=== PATIENT | male | born 1970 | race Two or more races ===

== ENCOUNTER 2023-12-27 22:52 | Observation (INO) ==
[2023-12-28 01:39] LABS: Albumin Globulin Ratio 1.2 (0.9-2); Albumin Level 3.8 gm/dl (3.4-5.0); BUN Creatinine Ratio 19.2 (10-20); Bilirubin,Total 0.2 mg/dl (0.2-1.0); Calcium 8.5 mg/dl (8.6-10.3); Creatinine Clr Calc Pharmacy 117.9 ml/min; Est GFR (African American) 120.3 ml/min; Est GFR (Non-African American) 103.8 ml/min; Globulin 3.3 gm/dl (2.5-4.0); Potassium 3.7 mmol/L (3.5-5.1); Total Protein 7.1 gm/dl (6.0-8.3)
[2023-12-28 01:59] LABS: INR 0.9 (0.9-1.1); Partial Thromboplastin Time 27 Seconds (21-31)
[2023-12-28 02:15] LABS: Hemoglobin 11.8 g/dl (14.0-18.0); Mean Corpuscular Hemoglobin 26.7 pg (25.0-34.0); Mean Corpuscular Hgb Conc 31.9 g/dL (32.0-36.0); Mean Corpuscular Volume 83.7 fL (80.0-100.0); Platelet Count 4 K/uL (130-400); RDW Coefficient of Variation 14.3 % (11.5-14.5); RDW Standard Deviation 43.6 fL (36.4-46.3); Red Blood Count 4.42 M/uL (4.70-6.10); White Blood Count 6.26 K/ul (4.8-10.8)
[2023-12-28 02:17] LABS: Basophils # (auto) 0.02 K/uL (0.00-0.20); Basophils % (auto) 0.3 %; Eosinophils # (auto) 0.15 K/uL (0.00-0.50); Eosinophils % (auto) 2.4 %; Immature Granulocytes # (auto) 0.03 K/uL (0.01-0.20); Immature Granulocytes % (auto) 0.5 %; Lymphocytes # (auto) 1.48 K/uL (1.20-3.40); Lymphocytes % (auto) 23.6 %; Monocytes # (auto) 0.36 K/uL (0.11-0.59); Monocytes % (auto) 5.8 %; Neutrophils # (auto) 4.22 K/uL (1.40-6.50); Neutrophils % (auto) 67.4 %; Platelet Estimate Signific. Decreased (Normal)
[2023-12-28 04:38] LABS: Appearance Urine Clear (Clear); Bilirubin Urine Negative (Negative); Blood Urine Negative (Negative); Color Urine Yellow; Glucose Urine UA Negative (Negative); Ketones Urine Negative (Negative); Leukocyte Esterase Urine Negative (Negative); Nitrite Urine Negative (Negative); Protein Urine Negative (Negative); Specific Gravity Urine 1.022 (1.000-1.030); Urobilinogen Urine Negative (Negative)
[2023-12-28] MEDS: PANTOprazole 40 MG in SYRINGE 0 ML IV ONE (04:50)
[2023-12-28 05:24] LABS: Adenovirus PCR Not Detected (NotDetected); Bordetella parapertussis PCR Not Detected (NotDetected); Bordetella pertussis PCR Not Detected (NotDetected); Chlamydia pneumoniae PCR Not Detected (NotDetected); Coronavirus 229E PCR Not Detected (NotDetected); Coronavirus CoV-2 (COVID19)PCR Not Detected (NotDetected); Coronavirus HKU1 PCR Not Detected (NotDetected); Coronavirus NL63 PCR Not Detected (NotDetected); Coronavirus OC43PCR Not Detected (NotDetected); Human Metapneumovirus PCR Not Detected (NotDetected); Influenza A PCR Not Detected (NotDetected); Influenza B PCR Not Detected (NotDetected); Mycoplasma pneumoniae PCR Not Detected (NotDetected); Parainfluenza Virus 1 PCR Not Detected (NotDetected); Parainfluenza Virus 2 PCR Not Detected (NotDetected); Parainfluenza Virus 3 PCR Not Detected (NotDetected); Parainfluenza Virus 4 PCR Not Detected (NotDetected); Respiratory Syncytial VirusPCR Not Detected (NotDetected); Rhinovirus/Enterovirus PCR Not Detected (NotDetected)
--- NOTE | 2023-12-28 05:29 | CT Scan Report ---
Exam(s): CT ABDOMEN + PELVIS Without Contrast EXAM: CT Abdomen and Pelvis Without Intravenous Contrast CLINICAL HISTORY: Reason for exam: gi bleed, low plt.pt from [facility], staff reports low platelets, bruising and bloody stool. pt c/o abd pain, shortness of breath and nausea. denies hx of low platelet count in the past. TECHNIQUE: Axial computed tomography images of the abdomen and pelvis without intravenous contrast. CTDI is 22 mGy and DLP is 1115 mGy-cm. Automated exposure control was utilized for the study. A dose lowering technique was utilized adhering to the principles of ALARA. COMPARISON: No relevant prior studies available. FINDINGS: ABDOMEN: Liver: Unremarkable. Gallbladder and bile ducts: Unremarkable. No calcified stones. No ductal dilation. Pancreas: Unremarkable. No ductal dilation. Spleen: Unremarkable. No splenomegaly. Adrenals: Unremarkable. No mass. Kidneys and ureters: Mild asymmetric left perinephric edema. No obstructing stones. No hydronephrosis. Stomach and bowel: Generalized increase in stool throughout much of the colon. No obstruction. No mucosal thickening. PELVIS: Appendix: No findings to suggest acute appendicitis. Bladder: Mild bladder wall thickening, though the bladder is not well distended. No stones. ABDOMEN and PELVIS: Intraperitoneal space: Unremarkable. No free air. No significant fluid collection. Bones/joints: No acute findings. Soft tissues: Unremarkable. Vasculature: Unremarkable. No abdominal aortic aneurysm. Lymph nodes: Unremarkable. No enlarged lymph nodes. IMPRESSION: Mild bladder wall thickening, though the bladder is not well-distended. Correlate for possible cystitis. Mild asymmetric left perinephric infiltration. No hydronephrosis or urinary tract calculus. Electronically signed by: Maikel Roy MD 12/28/23 05:28 AM
[2023-12-28] MEDS ORDERED: methylPREDNISolone 10 mg/mL (For Ped Dose < 7mg) IV STA (06:10)
[2023-12-28] MEDS ORDERED: SODIUM CHLORIDE 0.9% 250 ML IV PRN (06:10)
[2023-12-28] MEDS ORDERED: IMMUNE GLOBULIN (HUMAN) SOLN IV ONE (06:12)
--- NOTE | 2023-12-28 06:15 | Emergency Department Note ---
Impression & Plan Thrombocytopenia ED Provider Note ED Provider Note NAME: TRISTA [id number] BRYNN AGE:53 SEX: Male : 1970 ARRIVES VIA: EMS INFORMANT: Patient ED PROVIDER(s): Margaret Flower DO CHIEF COMPLAINT: Abnormal outpatient lab HPI: This is a 53-year-old male [facility] to abnormal outpatient labs from 2 days ago. He states he was told he has low platelets. He states no prior history of low platelets. He states he does not take any blood thinners or antiplatelet medications. He states over the last several months they have been doing blood work on him to evaluate him for possible lupus. He states he was started on prednisone a couple weeks ago additionally. He states has been having intermittent abdominal pain and has occasionally noticed blood in his stool. He states he has had bruises and noticed that his gums would bleed with teeth brushing. He denies any blood in his urine, or blood in the sputum. PAST MEDICAL HISTORY:See Below PAST SURGICAL HISTORY:See Below FAMILY HISTORY:See Below SOCIAL HISTORY:See Below HOME MEDICATIONS:See Below ALLERGIES:See Below VITALS:See Below PHYSICAL EXAMINATION: GENERAL: alert, well appearing, well nourished, no distress, non-toxic EYE EXAM: normal conjunctiva, PERRL and EOM's grossly intact OROPHARYNX: no exudate, no erythema, lips, buccal mucosa, and tongue normal and mucous membranes are moist NECK: supple, no nuchal rigidity, no adenopathy, non-tender LUNGS: Clear to auscultation. Normal chest wall mechanics, no w/r/r HEART: no murmurs, S1 normal and S2 normal ABDOMEN: abdomen soft, non-tender, normo-active bowel sounds, no masses, no rebound or guarding. SKIN: no rashes, bruise noted to right chest wall, left upper extremity both appear to be healing UPPER EXTREMITIES: upper extremities are grossly normal. FROM, nml pulses b/l. LOWER EXTREMITIES: No pitting edema. FROM, nml pulses b/l. NEURO EXAM: Normal sensorium, cranial nerves II-XII grossly intact, normal speech, no facial droop,nogross weakness of arms, no gross weakness of legs. Gross sensation intact. No ataxia. Vital Signs: reviewed and remarkable Differential Diagnosis: Lab error, phlebotomy air, medication ADR, splenomegaly, acute viral reaction, acute malignancy, ITP, as well as others were considered MEDICAL DECISION MAKING: This is a 53-year-old male who presents from a local correctional facility due to concern for abnormal outpatient labs showing thrombocytopenia with a platelet count of 10. Labs drawn and sent here, IV established, and once a room was available patient was monitored on telemetry. Repeat platelet count here was 4. Chest x-ray performed and evaluated by me at bedside. Due to concern for abdominal pain and recent mention of GI bleed, patient sent for CT of the abdomen pelvis additionally. Additional labs sent by me as well as nasal swab for viral etiology. Patient denies any traumatic injury. He does not currently take any antiplatelet or anticoagulation medication. I did discuss case with the on-call charge nurse at the [facility] at the present who was able to confirm some recent events. Case then discussed with on-call heme-onc who made additional recommendations regarding treatment for likely ITP. These were added, case then discussed with hospitalist team for additional evaluation. Consultation(s): 0610: Discussed with Dr. Cruz, heme-onc. Recommends initiation of 1 g IV methylprednisolone daily, IVIG 1 g/kg/day and administering 1 unit of platelets. 0715: Discussed with Dr. Jay, [place] hospitalist team, for additional evaluation and mgmt. ER Treatment Provided: See below 0323: Discussed with Mei, charge nurse in the [facility]. She confirms patient was recently undergoing a workup for SLE and was started on prednisone on December 05 to be taken in a tapering fashion. She states he has not had any recent outpatient imaging in the last several months. She states he did have several nosebleeds at their facility in recent days. She states he was scheduled to be started on Plaquenil but had not yet started that yet. Diagnostics Interpreted By Me: -Cardiac Monitoring: An order was placed for continuous cardiac monitoring. The monitor shows a rate of 70 with normal sinus rhythm. -Laboratory studies: As stated above and show below. -Imaging studies: X-ray Chest: A single view study of the chest was reviewed and was negative for cardiomegaly, focal infiltrate, effusion, pulmonary edema, or wide mediastinum. Triage Nursing Note Reviewed Prior/Outside Records Reviewed -outpatient labs from the [facility] reviewed Critical Care: Critical care of 42 min performed to assess and manage high likelihood of life- threatening thrombocytopenia, involving labs and imaging performed with assessment to evaluate thrombocytopenia diagnosis with frequent reassessment. This time includes bedside time, treatment discussions with patient/family/consultants, documentation time and excludes procedure time. Past Med/Surg History Social History Smoking Status: Never smoker Preferred Language: French Feels Safe at Home: Yes Results & Data (ED) Vital Signs Vital Signs - 24 hr 12/27/23 23:00 12/28/23 02:45 12/28/23 02:48 Temperature 36.4 C L Temperature Source Temporal Artery Scan Pulse Rate 91 H 73 Pulse Rate [Apical] 65 Pulse Rhythm [Apical] Regular Pulse Strength [Apical] Normal Respiratory Rate 18 18 Respiratory Effort / Characteristics Non-Labored Non-Labored Spontaneous Respiratory Depth Normal Normal Respiratory Pattern Regular Blood Pressure 155/81 H Blood Pressure [Right Arm] 125/91 Blood Pressure Mean 105 Blood Pressure Mean [Right Arm] 102 Blood Pressure Position [Right Arm] Lying Pulse Oximetry 97 95 Oxygen Delivery Method Room Air Room Air Sepsis Recent Fever Within 48 Hours No Sepsis New/Unexplained Change in Mental Status No Sepsis Action Taken by Nursing No Action Required 12/28/23 05:00 Temperature Temperature Source Pulse Rate Pulse Rate [Apical] 76 Pulse Rhythm [Apical] Regular Pulse Strength [Apical] Normal Respiratory Rate 18 Respiratory Effort / Characteristics Non-Labored Spontaneous Respiratory Depth Normal Respiratory Pattern Regular Blood Pressure Blood Pressure [Right Arm] 128/77 Blood Pressure Mean Blood Pressure Mean [Right Arm] 94 Blood Pressure Position [Right Arm] Lying Pulse Oximetry 98 Oxygen Delivery Method Room Air Sepsis Recent Fever Within 48 Hours Sepsis New/Unexplained Change in Mental Status Sepsis Action Taken by Nursing Laboratory Data 12/28/23 00:55 12/28/23 00:55 Lab Results 12/28/23 12/28/23 Range/Units 00:55 04:06 WBC 6.26 (4.8-10.8) K/ul RBC 4.42 L (4.70-6.10) M/uL Hgb 11.8 L (14.0-18.0) g/dl Hct 37.0 L (42.0-52.0) % MCV 83.7 (80.0-100.0) fL MCH 26.7 (25.0-34.0) pg MCHC 31.9 L (32.0-36.0) g/dL RDW Std Deviation 43.6 (36.4-46.3) fL RDW Coeff of Veto 14.3 (11.5-14.5) % Plt Count 4 L* (130-400) K/uL Immature Gran % (Auto) 0.5 % Neut % (Auto) 67.4 % Lymph % (Auto) 23.6 % [place] % (Auto) 5.8 % Eos % (Auto) 2.4 % Baso % (Auto) 0.3 % Neut # (Auto) 4.22 (1.40-6.50) K/uL Lymph # (Auto) 1.48 (1.20-3.40) K/uL [place] # (Auto) 0.36 (0.11-0.59) K/uL Eos # (Auto) 0.15 (0.00-0.50) K/uL Baso # (Auto) 0.02 (0.00-0.20) K/uL Immature Gran # (Auto) 0.03 (0.01-0.20) K/uL Platelet Estimate Signific. Decreased L (Normal) Peripher Smr Path Cons PT 10.0 (9.0-12.0) Seconds INR 0.9 (0.9-1.1) APTT 27 (21-31) Seconds PTT Ratio 1.0 Sodium 136 (136-145) mmol/L Potassium 3.7 (3.5-5.1) mmol/L Chloride 102 (98-107) mmol/L Carbon Dioxide 28 (21-32) mmol/L Anion Gap 6 (3-11) BUN 15 (6-23) mg/dl Creatinine 0.78 (0.6-1.4) mg/dl Est Cr Clr Drug Dosing 117.9 ml/min Est GFR ( Amer) 120.3 ml/min Est GFR (Non-Af Amer) 103.8 ml/min BUN/Creatinine Ratio 19.2 (10-20) Glucose 115 H (70-99(Fasting)) mg/dl Calcium 8.5 L (8.6-10.3) mg/dl Total Bilirubin 0.2 (0.2-1.0) mg/dl AST 15 (13-39) U/L ALT 13 (7-52) U/L Alkaline Phosphatase 59 (34-104) U/L Total Protein 7.1 (6.0-8.3) gm/dl Albumin 3.8 (3.4-5.0) gm/dl Globulin 3.3 (2.5-4.0) gm/dl Albumin/Globulin Ratio 1.2 (0.9-2) Urine Color Yellow Urine Appearance Clear (Clear) Urine pH 6.0 (4.5-7.5) Ur Specific [place] 1.022 (1.000-1.030) Urine Protein Negative (Negative) Urine Glucose (UA) Negative (Negative) Urine Ketones Negative (Negative) Urine Blood Negative (Negative) Urine Nitrite Negative (Negative) Urine Bilirubin Negative (Negative) Urine Urobilinogen Negative (Negative) Ur Leukocyte Esterase Negative (Negative) Adenovirus (PCR) Not Detected (NotDetected) Anaplasma Smear See Comment Babesia Smear See Comment B. pertussis DNA (PCR) Not Detected (NotDetected) B.parapertussis DNA PCR Not Detected (NotDetected) Lyme Disease Screen Negative (Negative) C. pneumoniae DNA (PCR) Not Detected (NotDetected) Coronavirus OC43 (PCR) Not Detected (NotDetected) Coronavirus HKU1 (PCR) Not Detected (NotDetected) Coronavirus 229E (PCR) Not Detected (NotDetected) SARS-CoV-2 (PCR) Not Detected (NotDetected) Coronavirus NL63 (PCR) Not Detected (NotDetected) Human Metapneumovir PCR Not Detected (NotDetected) Influenza Type A (PCR) Not Detected (NotDetected) Influenza Type B (PCR) Not Detected (NotDetected) M. pneumoniae (PCR) Not Detected (NotDetected) Parainfluenza 1 (PCR) Not Detected (NotDetected) Parainfluenza 2 (PCR) Not Detected (NotDetected) Parainfluenza 3 (PCR) Not Detected (NotDetected) Parainfluenza 4 (PCR) Not Detected (NotDetected) RSV (PCR) Not Detected (NotDetected) Entero/Rhino (PCR) Not Detected (NotDetected) Administered Medications Immune Globulin (Octagam 10%) 100 mls @ 53.4 mls/hr IV TODAY@0800 [facility]; Protocol Stop: 12/28/23 09:53 Last Admin: 12/28/23 08:31 Dose: 1 mg/kg/min, 53.4 mls/hr Documented By: ALLEN Discontinued Medications Pantoprazole Sodium 40 mg/ (Syringe) 10 mls @ 5 mls/min IV NOW ONE Stop: 12/28/23 03:30 Last Admin: 12/28/23 04:50 Dose: 5 mls/min Documented By: IDD Methylprednisolone 1,000 mg/ (Dextrose) 266 mls @ 266 mls/hr IV ONE ONE Stop: 12/28/23 08:44 Last Admin: 12/28/23 08:31 Dose: 266 mls/hr Documented By: ALLEN Imaging Data Radiologist's Impression: Chest X-Ray 12/27/23 23:04 XR chest 1V not portable CLINICAL HISTORY: Shortness of breath. COMPARISON STUDY: No previous studies for comparison. FINDINGS: Lung volumes are normal. Lungs are clear. There is no pneumothorax or pleural effusion. Cardiac size is normal. Mediastinal contours are normal. There is no evidence for pulmonary edema. IMPRESSION: No acute cardiopulmonary findings. ACT 112: Negative or not required by law. Electronically signed by: Jcarlos Ferraro M.D. 12/28/2023 7:04 AM Abdomen/Pelvis CT 12/28/23 04:24 Exam(s): CT ABDOMEN + PELVIS Without Contrast EXAM: CT Abdomen and Pelvis Without Intravenous Contrast CLINICAL HISTORY: Reason for exam: gi bleed, low plt.pt from [facility], staff reports low platelets, bruising and bloody stool. pt c/o abd pain, shortness of breath and nausea. denies hx of low platelet count in the past. TECHNIQUE: Axial computed tomography images of the abdomen and pelvis without intravenous contrast. CTDI is 22 mGy and DLP is 1115 mGy-cm. Automated exposure control was utilized for the study. A dose lowering technique was utilized adhering to the principles of ALARA. COMPARISON: No relevant prior studies available. FINDINGS: ABDOMEN: Liver: Unremarkable. Gallbladder and bile ducts: Unremarkable. No calcified stones. No ductal dilation. Pancreas: Unremarkable. No ductal dilation. Spleen: Unremarkable. No splenomegaly. Adrenals: Unremarkable. No mass. Kidneys and ureters: Mild asymmetric left perinephric edema. No obstructing stones. No hydronephrosis. Stomach and bowel: Generalized increase in stool throughout much of the colon. No obstruction. No mucosal thickening. PELVIS: Appendix: No findings to suggest acute appendicitis. Bladder: Mild bladder wall thickening, though the bladder is not well distended. No stones. ABDOMEN and PELVIS: Intraperitoneal space: Unremarkable. No free air. No significant fluid collection. Bones/joints: No acute findings. Soft tissues: Unremarkable. Vasculature: Unremarkable. No abdominal aortic aneurysm. Lymph nodes: Unremarkable. No enlarged lymph nodes. IMPRESSION: Mild bladder wall thickening, though the bladder is not well-distended. Correlate for possible cystitis. Mild asymmetric left perinephric infiltration. No hydronephrosis or urinary tract calculus. Electronically signed by: Maikel Roy MD 12/28/23 05:28 AM Discharge Plan Visit Data Chief Complaint: Abnormal Labs/Diagnostic Testing Stated Complaint: ABN BLOOD WORK/LABS, POSSIBLE INTERNAL BLEEDING ED Provider: Margaret Flower Discharge Problem: Thrombocytopenia Patient Disposition: Admitted As Inpatient Discharge Instructions Interventions: ED Discharge Assessment Last Done: 12/28/23 07:47
--- NOTE | 2023-12-28 07:06 | XRay Report ---
XR chest 1V not portable CLINICAL HISTORY: Shortness of breath. COMPARISON STUDY: No previous studies for comparison. FINDINGS: Lung volumes are normal. Lungs are clear. There is no pneumothorax or pleural effusion. Car diac size is normal. Mediastinal contours are normal. There is no evidence for pulmonary edema. IMPRESSION: No acute cardiopulmonary findings. ACT 112: Negative or not required by law. Electronically signed by: Jcarlos Ferraro M.D. 12/28/2023 7:04 AM
--- NOTE | 2023-12-28 07:34 | History & Physical Report ---
Date of Service December 28, 2023 Assessment & Plan (1) Thrombocytopenia: Plan: Acute severe thrombocytopenia with concern for ITP Additional testing of HIV hepatitis panel, CONCHITA, TSH, peripheral smear have been ordered Negative testing including tickborne illnesses, viral BioFire for respiratory infection, urine analysis, normal differential on CBC, and coagulation studies Consultation with Dr. Cruz her recommnedataions : -Give 1g methylprednisolone daily x 3 days and then switch to dexamethasone 40mg po daily x 4 days -IVIG 1 g/kg/day x 2 days -Can be discharged to follow up with hematology clinic when Platelet count is above 50,000 History of Present Illness Primary Care Provider: [facility] 53-year-old male sent [place] the [place] due to abnormal outpatient labs from 2 days ago. He states he was told he has low platelets. He states no prior history of low platelets. He states he does not take any blood thinners or antiplatelet medications. He states over the last several months they have been doing blood work on him to evaluate him for possible lupus. He states he was started on prednisone a couple weeks ago additionally. He states has been having intermittent abdominal pain and has occasionally noticed blood in his stool. He states he has had bruises and noticed that his gums would bleed with teeth brushing. He denies any blood in his urine, or blood in the sputum. The ER attending interface with hematology oncology and recommended infusion of platelets immunoglobulins and steroids which were initiated. Past Med/Surg History Social History Smoking Status: Never smoker Hx Alcohol Use: No Hx Substance Use: No Preferred Language: Turkmen Communication Ability: Effective Practice Administrator Required: No Beliefs That Will Affect Care: None Current Living Situation: Other Current Living Situation Comment: Correctional facility Other Information That Helps Us Care for You: No Feels Safe at Home: Yes Safety Concerns: Feels Safe At This Time Assistive Devices: None Review of Systems Review of Systems: Mild distress and fatigue no headache, no visual changes no speech or swallowing issues no gum bleeding or nosebleeding. Occasionally with blowing nose patient does have some mild blood in the tissue no chest pain, pressure or palpitations no shortness of breath, cough or wheezes no abdominal pain, nausea or vomiting, diarrhea or constipation occasionally with wiping from a bowel movement he has blood on his toilet tissue no dysuria, hematuria or frequency no focal joint pain or swelling no back pain, CVA tenderness or radicular pain Bruising on associated with injury and small areas on his torso arms and legs no focal signs of weakness or numbness or altered sensation no complaints of anxiety or depression.. Physical Exam Physical Exam: The patient appeared well nourished and normally developed. Vital signs as documented. Head exam is normocephalic atraumatic Neck is without JVD, thyromegaly, or carotid bruits. Lungs are clear to auscultation, no focal loss of breath sounds Cardiac exam, Rhythm is regular.. No murmurs, rubs or gallops. Abdominal exam reveals normal bowel sounds, soft non tender, no masses Extremities are nonedematous and both pedal pulses are present Neurologic exam is alert and oriented, no focal loss of strength or sensation Skin is with areas of bruising and black and blue no overt areas of bleeding Psychologically is without concerns for anxiety or depression.. Results & Data Results & Data Vital Signs (Past 12 Hours) Vital Signs Temp Pulse Pulse Resp BP BP Pulse Ox 12/28/23 05:00 76 18 128/77 98 12/28/23 02:48 73 12/28/23 02:45 65 18 125/91 95 12/27/23 23:00 97.5 F L 91 H 18 155/81 H 97 O2 Del Method 12/28/23 05:00 Room Air 12/28/23 02:48 12/28/23 02:45 Room Air 12/27/23 23:00 Room Air Laboratory Results review cbc review prp Code Status & VTE Plan VTE Prophylaxis Plan VTE Prophylaxis will be ordered: Yes PG Care Time/CCT Total # of Minutes Spent Total Time Spent with Patient: Total time spent is greater than 50% in coordination of care (as documented) at patient's floor/unit and/or counseling patient: Coding Level of Care Code 46497 INT INP/OBS CARE 2/55MIN Diagnoses Thrombocytopenia D69.6
[2023-12-28] MEDS ORDERED: ALUMINUM/MAGNESIUM SUSP 30 ML UDC PO PRN (07:46)
[2023-12-28] MEDS ORDERED: ONDANSETRON INJ 2 MG/ML 2 ML VIAL IV PRN (07:46)
[2023-12-28] MEDS: methylPREDNISolone 1,000 MG in DEXTROSE 5% 250 ML IV ONE (08:31)
[2023-12-28] MEDS: Octagam 10% IVIG 10 gram bottle IV SCH (08:31)
[2023-12-28 08:46] LABS: Immunoglobulin A 206.9 mg/dl (70-400); Immunoglobulin G 1322.5 mg/dl (635-1741); Immunoglobulin M 178.8 mg/dl (45-281)
[2023-12-28 09:00] LABS: Thyroid Stimulating Hormone 2.947 uIu/ml (0.300-4.500)
[2023-12-28] MEDS: Octagam 10% IVIG 20 gram bottle IV SCH (09:49)
--- NOTE | 2023-12-28 11:07 | Oncology Consultation ---
Date of Consultation December 28, 2023 Assessment & Plan (1) Thrombocytopenia: Plan Peripheral smear review did not show any evidence of dysplastic changes/malignancy. He reported episodes of G.I bleeding.Being worked up for Lupus. 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 Please feel free to call if you have any other questions. History of Present Illness Reason for Consultation: Thrombocytopenia Attending Physician: Cain Jay MD History of Present Illness 53 year old current inmate who presented to the ED after outpatient labs revealed severe thrombocytopenia. On arrival to the ED, platelet count was 4,000. Per review of records, he was being worked up for SLE and had recently been on prednisone taper. CBC in the ER revealed no other significant cytopenias other than thrombocytopenia. Discussed with ED physician and recommended workup for ITP, platelet transfusion, IV methylpred and IVIG. Patient History Social History Smoking Status: Never smoker Hx Alcohol Use: No Hx Substance Use: No Preferred Language: Setswana Communication Ability: Effective Sample Maker Required: No Beliefs That Will Affect Care: None Current Living Situation: Other Current Living Situation Comment: Correctional facility Other Information That Helps Us Care for You: No Feels Safe at Home: Yes Safety Concerns: Feels Safe At This Time Assistive Devices: None Results & Data Vital Signs (Past 12 Hours) Vital Signs Temp Pulse Pulse Pulse Resp BP Pulse Ox 12/28/23 09:50 36.7 C 67 18 110/69 95 12/28/23 09:03 36.2 C L 69 18 107/68 97 12/28/23 08:31 65 20 111/72 97 12/28/23 05:00 76 18 128/77 98 12/28/23 02:48 73 12/28/23 02:45 65 18 125/91 95 O2 Del Method 12/28/23 09:50 Room Air 12/28/23 09:03 Room Air 12/28/23 08:31 Room Air 12/28/23 05:00 Room Air 12/28/23 02:48 12/28/23 02:45 Room Air
--- NOTE | 2023-12-28 12:45 | Electrocardiogram Report ---
Test Reason : Blood Pressure : / mmHG Vent. Rate : 080 BPM Atrial Rate : 080 BPM P-R Int : 152 ms QRS Dur : 078 ms QT Int : 364 ms P-R-T Axes : 026 -04 015 degrees QTc Int : 419 ms Normal sinus rhythm Normal ECG No previous ECGs available Confirmed by Brett Ledezma ([id number]) on 12/28/2023 12:45:07 PM Referred By: [facility] ACKERMAN Confirmed By:Brett Ledezma
[2023-12-28 14:27] LABS: Folate (Folic Acid),Ser orPlas 12.65 ng/ml (>5.38)
[2023-12-28] MEDS: Patient's ALLERGY Info needs ENTERED STA (17:41)
[2023-12-29 07:18] LABS: Basophils # (auto) 0.01 K/uL (0.00-0.20); Basophils % (auto) 0.1 %; Hematocrit (blood only) 33.9 % (42.0-52.0); Immature Granulocytes # (auto) 0.04 K/uL (0.01-0.20); Immature Granulocytes % (auto) 0.4 %; Lymphocytes % (auto) 8.9 %; Mean Corpuscular Hgb Conc 32.4 g/dL (32.0-36.0); Mean Corpuscular Volume 83.1 fL (80.0-100.0); Mean Platelet Volume 12.3 fL (9.4-12.4); Monocytes # (auto) 0.31 K/uL (0.11-0.59); Monocytes % (auto) 3.5 %; Neutrophils # (auto) 7.81 K/uL (1.40-6.50); Neutrophils % (auto) 87.1 %; Platelet Count 39 K/uL (130-400); RDW Coefficient of Variation 14.1 % (11.5-14.5); RDW Standard Deviation 42.5 fL (36.4-46.3); Red Blood Count 4.08 M/uL (4.70-6.10); White Blood Count 8.97 K/ul (4.8-10.8)
[2023-12-29 07:46] LABS: BUN Creatinine Ratio 22.7 (10-20); Calcium 8.7 mg/dl (8.6-10.3); Creatinine Clr Calc Pharmacy 139.4 ml/min; Est GFR (African American) 128.8 ml/min; Est GFR (Non-African American) 111.2 ml/min; Potassium 4.1 mmol/L (3.5-5.1)
[2023-12-29] MEDS: methylPREDNISolone 1,000 MG in DEXTROSE 5% 250 ML IV SCH (08:09)
[2023-12-29] MEDS: Octagam 10% IVIG 10 gram bottle IV SCH (08:09)
[2023-12-29] MEDS: ACETAMINOPHEN 325 MG TAB PO PRN (08:17)
[2023-12-29] MEDS ORDERED: methylPREDNISolone 10 mg/mL (For Ped Dose < 7mg) IV SCH (09:00)
[2023-12-29] MEDS ORDERED: IMMUNE GLOBULIN (HUMAN) SOLN IV SCH (09:00)
[2023-12-29 09:36] LABS: HBSAG NON-REACTIVE (NON-REACTIVE); Hepatitis A Antibody IgM NON-REACTIVE (NON-REACTIVE); Hepatitis B Core Antibody IgM NON-REACTIVE (NON-REACTIVE)
[2023-12-29] MEDS: Octagam 10% IVIG 20 gram bottle IV SCH (09:53)
--- NOTE | 2023-12-29 14:17 | Progress Note ---
Date of Service December 29, 2023 Assessment & Plan (1) Thrombocytopenia: Plan Gentleman recently diagnosed with ITP. Has responded appropriately to IV steroids and IVIG platelet count improving from 4000-39,000. He will receive last dose of IVIG today and last dose of IV steroids tomorrow. Would expect with a count to be greater than 50,000 tomorrow and can be discharged if this is the case. Would recommend discharging with dexamethasone 40 mg daily x 4 days. He will follow-up with hematology clinic on discharge. Admission and Anticipated Discharge Date Admission Date: December 28, 2023 Subjective He denies any new complaints. Bruising seems to be improving. Platelet count has improved to 39,000. He will receive second dose of IVIG today. Results & Data Vital Signs (Past 12 Hours) Vital Signs Temp Pulse Resp BP Pulse Ox O2 Del Method 12/29/23 10:52 36.5 C 64 16 115/68 94 Room Air 12/29/23 09:57 36.6 C 82 18 103/62 96 Room Air 12/29/23 08:02 36.6 C 65 18 92/50 L 95 Room Air
--- NOTE | 2023-12-29 16:25 | Hospitalist Progress Note ---
Date of Service December 29, 2023 Assessment & Plan (1) Thrombocytopenia: Plan: Acute severe thrombocytopenia with concern for ITPplatelet count is improved to 39,000 Additional testing of HIV CONCHITA, folate is normal TSH is normal, acute hepatitis panel is normal or nonreactive, immunoglobulin levels are normal Negative testing including tickborne illnesses, viral BioFire for respiratory infection, urine analysis, normal differential on CBC, and coagulation studies Consultation with Dr. Cruz her recommendations : -Give 1g methylprednisolone daily x 3 days and then switch to dexamethasone 40mg po daily x 4 days -IVIG 1 g/kg/day x 2 days -Can be discharged to follow up with hematology clinic when Platelet count is above 50,000 Admission and Anticipated Discharge Date Admission Date: December 28, 2023 Subjective He denies any new complaints. Bruising seems to be improving. Platelet count has improved to 39,000. Patient will receive additional immunoglobulin and steroids Physical Exam Physical Exam: Awake alert appropriate no complaints no additional bruising or bleeding Results & Data Results & Data Vital Signs (Past 12 Hours) Vital Signs Temp Pulse Resp BP Pulse Ox O2 Del Method 12/29/23 10:52 97.7 F 64 16 115/68 94 Room Air 12/29/23 09:57 97.9 F 82 18 103/62 96 Room Air 12/29/23 08:02 97.9 F 65 18 92/50 L 95 Room Air PG Care Time/CCT Total # of Minutes Spent Total Time Spent with Patient: Total time spent is greater than 50% in coordination of care (as documented) at patient's floor/unit and/or counseling patient: Coding Level of Care Code 09669 SUB INP/OBS CARE 2/35MIN Diagnoses Thrombocytopenia D69.6
[2023-12-30 05:49] LABS: Basophils # (auto) 0.01 K/uL (0.00-0.20); Basophils % (auto) 0.1 %; Hematocrit (blood only) 32.5 % (42.0-52.0); Hemoglobin 10.4 g/dl (14.0-18.0); Immature Granulocytes # (auto) 0.11 K/uL (0.01-0.20); Immature Granulocytes % (auto) 0.9 %; Lymphocytes # (auto) 0.93 K/uL (1.20-3.40); Mean Corpuscular Hemoglobin 27.1 pg (25.0-34.0); Mean Corpuscular Volume 84.6 fL (80.0-100.0); Mean Platelet Volume 12.3 fL (9.4-12.4); Monocytes # (auto) 0.44 K/uL (0.11-0.59); Monocytes % (auto) 3.8 %; Neutrophils # (auto) 10.15 K/uL (1.40-6.50); Neutrophils % (auto) 87.2 %; Platelet Count 94 K/uL (130-400); RDW Coefficient of Variation 14.3 % (11.5-14.5); RDW Standard Deviation 43.8 fL (36.4-46.3); Red Blood Count 3.84 M/uL (4.70-6.10); White Blood Count 11.64 K/ul (4.8-10.8)
[2023-12-30 05:59] LABS: BUN Creatinine Ratio 26.1 (10-20); Calcium 8.2 mg/dl (8.6-10.3); Creatinine Clr Calc Pharmacy 133.3 ml/min; Est GFR (African American) 126.5 ml/min; Est GFR (Non-African American) 109.1 ml/min
[2023-12-30] MEDS: dexAMETHasone 4 MG TAB PO ONE (09:44)
--- NOTE | 2023-12-30 14:08 | Discharge Summary ---
Discharge Summary Date of Service December 30, 2023 Notes For Next Care Provider Check platelet count for follow-up and have patient see entry level paralegal for follow- up Medication Changes From Visit Patient on dexamethasone 40 mg daily for 4 additional days Pepcid added to prevent stomach irritation of steroids Admission HPI Per Admitting Provider 53-year-old male sent in from the [facility] due to abnormal outpatient labs from 2 days ago. He states he was told he has low platelets. He states no prior history of low platelets. He states he does not take any blood thinners or antiplatelet medications. He states over the last several months they have been doing blood work on him to evaluate him for possible lupus. He states he was started on prednisone a couple weeks ago additionally. He states has been having intermittent abdominal pain and has occasionally noticed blood in his stool. He states he has had bruises and noticed that his gums would bleed with teeth brushing. He denies any blood in his urine, or blood in the sputum. The ER attending interface with hematology oncology and recommended infusion of platelets immunoglobulins and steroids which were initiated. Principal Dx & Hospital Course #1 = Principal Diagnosis (1) Thrombocytopenia: Acute severe thrombocytopenia with concern for ITPplatelet count is improved to 39,000 Additional testing of HIV CONCHITA, folate is normal TSH is normal, acute hepatitis panel is normal or nonreactive, immunoglobulin levels are normal Negative testing including tickborne illnesses, viral BioFire for respiratory infection, urine analysis, normal differential on CBC, and coagulation studies Consultation with Dr. Cruz her recommendations : -Give 1g methylprednisolone daily x 3 days and then switch to dexamethasone 40mg po daily x 4 days -IVIG 1 g/kg/day x 2 days -Can be discharged to follow up with hematology clinic as platelet count is above 50,000 per instructions from hematology Updated Medication List Medication Instructions Recorded Confirmed Type dexamethasone 4 mg tablet 40 mg (10 x 4 mg) PO DAILY #40 tabs 12/30/23 Rx famotidine 20 mg tablet (Pepcid) 20 mg PO BID 6 weeks #84 tabs 12/30/23 Rx Hospital Stay Data Consultations 12/28/23 07:46 Consult Hematology Routine 12/30/23 07:28 Consult JUANA customer engineer Routine Diagnostic Imagining Performed 12/28/23 04:24 CT abd pelvis wo con Stat Pending Results Patient Have Any Pending Studies at Discharge: No Discharge Instructions Given to Patient (Per Discharging Provider) Your healthcare provider 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 ITP isalso called idiopathic thrombocytopenic purpura.ITP is ableeding disorderthat causes your immune system to destroy your platelets. Platelets are cells that help stop bleeding.If your body doesn't have enough platelets, your risk for bleeding goes up.Here's what you can do at home to lower your risk. Medicine and medical care Here are tips to follow: Don't take the following medicines, unless directed to by your healthcare provider. They make it harder for your blood to clot: Aspirin Ibuprofen or other NSAIDs (nonsteroidal anti-inflammatory drugs) Dont take any other medicine without checking with yourproviderfirst. This includes prescription and avti-gov-hxvmumi medicines, herbs, vitamins, and other supplements.Take all medicines exactly as directed.Limit your alcohol intake. Alcohol can make it harder for your blood to clot and put you at risk for accidents.Keep all follow-up appointments. Your healthcare provider will need to check your blood platelet count closely.Tell your dentist or other healthcare providersthat you have ITP before any procedures. Lower your risk for bleeding Recommendations to lower your risk include: Talk with your healthcare provider before playing any sports, especially contact sports, or activities that carry a risk for injury.Do what you can to prevent bruising or bumping yourself.Use an electric razor when shaving. Be careful when using sharp items such as nail trimmers orknives.Blow your nose very gently to prevent nosebleeds.Use a cool steam vaporizer to keep the air inside your home moist enough to prevent nosebleeds.Wear hard-soled shoes when outside.Use gloves and wear long pants when gardening or doing other activities where your skin could get scratched.If you have problems with gum bleeding, use a sponge toothbrush (instead of one with bristles). Ask your healthcare provider or dentist where you can get one. Follow-up Make a follow-up appointment as directed by our staff. Follow up with Dr Cruz at the [facility] [phone] When to call your healthcare provider Call your healthcare provider right away if you have any of the following: Easy bruising/Bleeding for no apparent reason, heavy bleeding, or bleeding that lasts longer than normal. Tiny areas of pinpoint bleeding on (or just under) the skin of the arms or legs,Blood in your urine or stool,Bleeding from your nose or gums Head injury or any major injury Total Time Total Time Spent Total Time Spent (In Minutes): It required greater than 30 minutes to prepare this patient for discharge. Time for discharge should include calling [facility] getting a number for the senior living covering healthcare provider. Calling that healthcare provider discussing the case. Going back to the patient and informing the guards that the patient was appropriate for discharge. Coding Level of Care Code 48203 INP/OBS DISCH >30 MIN Diagnoses Thrombocytopenia D69.6
[2024-01-01 12:51] LABS: Anti Nuclear Antibody Screen POSITIVE (NEGATIVE)
[2024-01-01 17:57] LABS: Babesia microti DNA Not Detected (Not Detected)
== END 2023-12-30 11:28 ==
LOC: ED 22:52 → EDINP 22:52 → 3W 12-28 07:47
DX: D69.6 Thrombocytopenia, unspecified

== ENCOUNTER 2024-05-30 10:29 | Inpatient (IN) ==
--- NOTE | 2024-05-30 11:17 | Emergency Department Note ---
History of Present Illness General Chief complaint: Back Injury/Pain Time Seen by Provider: 05/30/24 10:59 Source: patient, RN notes reviewed, old records reviewed (12/28/23-discharge summary from the patient had ITP) and other (Intermediate guards) Mode of arrival: other (Present transport) Limitations: no limitations History of Present Illness Maximum Pain Intensity: 10 This patient is a 53-year-old male who has a history of ITP, comes in after having tingly his entire body. This been going on for at least a week. He was seen here on the . He feels like he is getting worse and is getting more weak. He says that he is having a hard time walking. He also tells me that he is having a hard time urinating had no bowel movement for 6 days. No dysuria hematuria his vision has been blurry at times no headache no chest pain or shortness of breath his abdomen hurts at x 2 he says he has back pain and thinks it starts with the back as well. Home Medications Medication Instructions Recorded Confirmed Type Artificial Tears 1 drp ophthalmic (eye) TID 05/30/24 05/30/24 History albuterol sulfate 90 mcg/actuation 2 puff inhalation QID PRN 05/30/24 05/30/24 History aerosol inhaler Shortness Of Breath ciclesonide 80 mcg/actuation 1 puff inhalation BID 05/30/24 05/30/24 History aerosol inhaler (Alvesco) gabapentin 100 mg capsule 100 mg PO UD 05/30/24 05/30/24 History hydrocortisone 2.5 % topical 1 applic topical DAILY PRN Other 05/30/24 05/30/24 History ointment hydroxychloroquine 200 mg tablet 400 mg PO DAILY 05/30/24 05/30/24 History Allergies Allergy/AdvReac Type Severity Reaction Status Date / Time Penicillins AdvReac Severe Difficulty Verified 05/23/24 12:58 Breathing Past Med/Surg History Problem List (Updated 05/30/24 @ 17:11 by Sathya Pedro MD) Back pain (Acute) SLE (systemic lupus erythematosus) Weakness (Acute) Numbness and tingling of right side of face (Acute) Paresthesia of hand, bilateral (Acute) Bilateral leg paresthesia (Acute) Head pain (Acute) Acute ITP Thrombocytopenia (Acute) Family History (Updated 05/30/24 @ 16:52 by Ana Sanders PA-C) Other Cancer Dementia Social History Smoking Status: Former smoker Tobacco Type: Cigarettes Hx Alcohol Use: No Hx Substance Use: No Preferred Language: Portuguese Communication Ability: Effective Flag Maker Required: No Beliefs That Will Affect Care: None Current Living Situation: Other Current Living Situation Comment: [facility] Feels Safe at Home: Yes Assistive Devices: None Review of Systems A total of 10 systems reviewed and were otherwise negative Physical Exam Vital Signs Vital Signs - 24 hr 05/30/24 10:30 05/30/24 10:51 05/30/24 12:03 Temperature 37 C Temperature Source Oral Pulse Rate 89 73 82 Pulse Rate [Apical] Pulse Rate from SpO2 Sensor 84 Respiratory Rate 21 21 Respiratory Effort / Characteristics Non-Labored Respiratory Depth Normal Respiratory Pattern Regular Blood Pressure 134/96 127/93 Blood Pressure [Right Arm] Blood Pressure Mean 108 104 Blood Pressure Mean [Right Arm] Pulse Oximetry 96 96 Oxygen Delivery Method Room Air Sepsis Recent Fever Within 48 Hours No Sepsis New/Unexplained Change in Mental Status N/A Sepsis Action Taken by Nursing No Action Required 05/30/24 12:12 05/30/24 12:51 05/30/24 14:03 Temperature Temperature Source Pulse Rate 67 73 Pulse Rate [Apical] Pulse Rate from SpO2 Sensor 67 72 Respiratory Rate 18 17 Respiratory Effort / Characteristics Respiratory Depth Respiratory Pattern Blood Pressure 130/92 138/93 133/93 Blood Pressure [Right Arm] Blood Pressure Mean 104 108 102 Blood Pressure Mean [Right Arm] Pulse Oximetry 97 97 Oxygen Delivery Method Sepsis Recent Fever Within 48 Hours Sepsis New/Unexplained Change in Mental Status Sepsis Action Taken by Nursing 05/30/24 14:21 05/30/24 14:30 05/30/24 14:48 Temperature Temperature Source Pulse Rate 86 Pulse Rate [Apical] Pulse Rate from SpO2 Sensor 72 67 91 H Respiratory Rate 18 Respiratory Effort / Characteristics Respiratory Depth Respiratory Pattern Blood Pressure 136/98 143/104 H Blood Pressure [Right Arm] Blood Pressure Mean 110 117 Blood Pressure Mean [Right Arm] Pulse Oximetry 96 98 98 Oxygen Delivery Method Sepsis Recent Fever Within 48 Hours Sepsis New/Unexplained Change in Mental Status Sepsis Action Taken by Nursing 05/30/24 16:00 05/30/24 16:45 Temperature Temperature Source Pulse Rate 86 Pulse Rate [Apical] 94 H Pulse Rate from SpO2 Sensor Respiratory Rate 18 Respiratory Effort / Characteristics Respiratory Depth Respiratory Pattern Blood Pressure Blood Pressure [Right Arm] 127/91 Blood Pressure Mean Blood Pressure Mean [Right Arm] 103 Pulse Oximetry 97 Oxygen Delivery Method Room Air Sepsis Recent Fever Within 48 Hours Sepsis New/Unexplained Change in Mental Status Sepsis Action Taken by Nursing General: Well developed well nourished middle-age male who appears in no acute distress, breathing comfortably on room air. Normal speech, he has somewhat dysarthric speech at times HEENT: Normal cephalic atraumatic. Pupils are equal round and reactive to light. Extraocular movements are intact, although he does have some asymmetry it seems like the left eye has a disconjugate gaze moving laterally. I am unsure of the chronicity of this. Oropharynx is pink with moist mucous membranes. No swelling of the mouth lips or tongue. Neck: Supple with a midline trachea. No meningeal signs or stiffness, no JVD or bruits. No Stridor. Chest: Clear to auscultation bilaterally. No wheezes or rhonchi. No increased work of breathing. Heart: Regular rate and rhythm without murmurs or gallops. Abdomen: Soft nontender, nondistended without rebound guarding or rigidity. Extremities: No cyanosis clubbing or edema. No calf tenderness or assymetry Spine/Back. Non tender to palpation. No CVA tenderness Skin: Good turgor without rashes. Neurologic exam: Cranial nerves two through 12 are intact with the exception of some disconjugate gaze in the left eye. His face does not appear to be asymmetrical.. He is moving all 4 extremities symmetrically but says he feels weak he also says he feels tingly to light touch when I checked his reflexes diffusely they do seem to be somewhat diminished and symmetrical Course Administered Medications Discontinued Medications Gadobutrol (Gadobutrol 65ml Vial) 8 ml IV ONCE ONE Stop: 05/30/24 13:49 Last Admin: 05/30/24 13:48 Dose: 8 ml Documented By: KUNAL Medical Decision Making Differential Diagnosis Central neurologic process, spinal process, demyelinating disorder, infection, Gamber Ray, electrolyte or metabolic abnormality Medical Records Attestation: I reviewed the patient's medical records. Home Medications Current Medication List: was personally reviewed by me Laboratory Data Attestation: I reviewed the patient's lab results. 05/30/24 10:38 05/30/24 10:38 Lab Results 05/30/24 Range/Units 10:38 WBC 6.38 (4.8-10.8) K/ul RBC 5.13 (4.70-6.10) M/uL Hgb 15.0 (14.0-18.0) g/dl Hct 44.3 (42.0-52.0) % MCV 86.4 (80.0-100.0) fL MCH 29.2 (25.0-34.0) pg MCHC 33.9 (32.0-36.0) g/dL RDW Std Deviation 39.3 (36.4-46.3) fL RDW Coeff of Veto 12.5 (11.5-14.5) % Plt Count 252 (130-400) K/uL MPV 10.5 (9.4-12.4) fL Immature Gran % (Auto) 0.3 % Neut % (Auto) 67.3 % Lymph % (Auto) 22.9 % Mcduffie % (Auto) 8.5 % Eos % (Auto) 0.5 % Baso % (Auto) 0.5 % Neut # (Auto) 4.30 (1.40-6.50) K/uL Lymph # (Auto) 1.46 (1.20-3.40) K/uL Mcduffie # (Auto) 0.54 (0.11-0.59) K/uL Eos # (Auto) 0.03 (0.00-0.50) K/uL Baso # (Auto) 0.03 (0.00-0.20) K/uL Immature Gran # (Auto) 0.02 (0.01-0.20) K/uL Sodium 135 L (136-145) mmol/L Potassium 4.1 (3.5-5.1) mmol/L Chloride 102 (98-107) mmol/L Carbon Dioxide 24 (21-32) mmol/L Anion Gap 9 (3-11) BUN 12 (6-23) mg/dl Creatinine 0.59 L (0.6-1.4) mg/dl Est Cr Clr Drug Dosing 148.2 ml/min Est GFR ( Amer) 134.9 ml/min Est GFR (Non-Af Amer) 116.4 ml/min BUN/Creatinine Ratio 20.3 H (10-20) Glucose 97 (70-99(Fasting)) mg/dl Calcium 9.6 (8.6-10.3) mg/dl Total Bilirubin 0.3 (0.2-1.0) mg/dl AST 18 (13-39) U/L ALT 19 (7-52) U/L Alkaline Phosphatase 51 (34-104) U/L Troponin I High Sens 17.5 (0-20) pg/ml Total Protein 7.1 (6.0-8.3) gm/dl Albumin 4.3 (3.4-5.0) gm/dl Globulin 2.8 (2.5-4.0) gm/dl Albumin/Globulin Ratio 1.5 (0.9-2) Imaging Data Attestation: I personally reviewed and interpreted this imaging study as follows: My Impression: Chest x-rayno acute infiltrate, failure, pneumothorax seen Radiologist's Impression: Brain MRI 05/30/24 11:09 MRI OF THE BRAIN WITHOUT AND WITH IV CONTRAST CLINICAL HISTORY: numbness and weakness in body COMPARISON STUDY: Head CT and CTA of the head May 26, 2024. TECHNIQUE: Utilizing a 1.5 Faustina magnet and dedicated coil, multiplanar, multiecho imaging of the brain was performed pre and postcontrast administration. IV administration of 8 mL of Gadavist contrast was uneventful. FINDINGS: There are no foci of restricted diffusion to suggest acute infarct. No acute intracranial hemorrhage, midline shift or mass effect is present. Brain volume is normal. Ventricular system is normal. Basal cisterns are patent. Flow- voids for the major intracranial vessels are present. There is no intracranial mass or pathologic enhancement. No parenchymal signal abnormality is present. Calvarial signal is normal. There is no evidence for sinusitis. There is no mastoid fluid. IMPRESSION: Unremarkable MRI of the brain. ACT 112: Negative or not required by law. Electronically signed by: Jcarlos Ferraro M.D. 05/30/2024 2:31 PM Chest X-Ray 05/30/24 11:11 XR chest 1V portable CLINICAL HISTORY: weakness TECHNIQUE: Single frontal radiograph of the chest was obtained. Comparison: Comparison is made to chest radiograph 05/26/2024 FINDINGS: No lines and tubes are seen. The cardiomediastinal silhouette is normal. Elevation of the right hemidiaphragm is seen. No evidence of pleural effusion or pneumothorax. IMPRESSION: No acute chest disease. ACT 112: Negative or not required by law. Electronically signed by: Stefano Khalil M.D. 05/30/2024 11:55 AM Lumbar Spine MRI 05/30/24 12:45 MRI OF THE LUMBAR SPINE WITHOUT IV CONTRAST CLINICAL HISTORY: Lower extremity weakness. Low back pain. COMPARISON STUDY: Abdominal CT dated 05/23/2024. TECHNIQUE: MRI of the lumbar spine was performed utilizing various T1 and T2- weighted sequences in the axial and sagittal planes. IV contrast was not administered for this examination. The examination is compromised by motion artifact. FINDINGS: Lumbar spine: Vertebral body height and alignment are maintained throughout the lumbar spine. The transverse and spinous processes appear intact. Tiny anterior osteophytes are seen throughout. There is no evidence of spondylolysis. A small hemangioma is noted in the body of L2. No destructive bony lesion is seen. Intervertebral discs: There is mild disc desiccation. The disc spaces are maintained. Spinal cord: The visualized spinal cord is normal in morphology and signal intensity. The conus medullaris terminates at the T12-L1 interspace. The nerve roots of the cauda equina are normal in morphology. L1-L2: There is minimal posterior disc bulge with annular fissure. The central canal and neural foramina are patent. L2-L3: Unremarkable. L3-L4: There is a central posterior disc protrusion eccentric to the left which abuts the transiting left sided nerve roots. There is no significant central canal stenosis. Lateral disc bulges contribute to minimal bilateral subarticular stenosis. The neural foramina are patent. L4-L5: There is broad-based posterior disc bulge with annular fissure. This is eccentric to the left and impinges on the transiting left sided nerve roots. There is mild central canal stenosis at this level with a minimum AP canal diameter of 6.5 mm. Lateral disc bulge contributes to bilateral subarticular stenosis which is greater on the left. This may impinge on the exiting bilateral L4 nerve roots. The neural foramina are patent. L5-S1: There is minimal posterior disc bulge with annular fissure. The central canal is clear. Right lateral disc bulge contributes to subarticular stenosis and may abut the exiting right L5 nerve root. Facet arthropathy is of no consequence. The neural foramina are patent. Sacrum: The visualized sacrum is normal in morphology and signal intensity. Soft tissues: The paraspinous soft tissues are within normal limits. The retroperitoneal structures are grossly unremarkable but incompletely evaluated. IMPRESSION: 1. Degenerative disc disease and mild spondylosis as above, greatest at L3-L4 and L4-L5. See discussion for detailed level by level analysis. 2. No destructive bony process is seen. Electronically signed by: Sean Ventura M.D. 05/30/2024 2:42 PM ECG Data Attestation: I personally reviewed and interpreted this ECG as follows: Indication: + weakness Rate (beats per minute): 77 Rhythm: + normal sinus ECG Intervals/blocks: + Normal QRS, + Normal QT and + Normal VA ECG [place]: + Normal ECG ST segments: + Normal ST segments ECG Findings: no PACs or no PVCs Comparison ECG Date: from (05/26/24) Change: no significant change MDM Narrative This patient comes in with at least a weeks worth of tingling and weakness. He has had no fall or trauma. He is stable vital signs, he is in no respiratory distress. Given his ongoing symptoms he does need extensive workup. He never had MRIs .I did order MRI of his brain given the fact that he does have a disconjugate gaze and some cranial nerve findings potentially some of this could be chronic however. He may ultimately need further MRIs of his spine. Blood work was obtained urinalysis was obtained. Work was unremarkable he is no fever or white count to suggest infection. He does have a history of ITP but his platelets are normal today. His troponin is 17 which is normal. EKG does not show any ischemic changes or arrhythmia. Chest x-ray was unremarkable. Brain MRI was normal. Lumbar spine MRI does have some degenerative changes. I went back and reassessed the patient he seems to be complaining mostly of back pain which I think is been chronic. He is also says he feels numb all over. There is a language barrier a little bit as well potentially. His ocular movements seem intact at present and his speech seems well. This could be rated related to a spinal process or MS or Guillain-Story and I do think he needs to be admitted for further treatment and neurologic evaluation. I have discussed the case at length with the [facility] hospitalist and they saw him in the ER for these measures. Continuous cardiac monitoring call orders placed in EMR for continuous monitoring specialist call upon my evaluation patient noted to be in normal sinus rhythm rate of 85 Impression & Plan Weakness, Bilateral leg paresthesia, Paresthesia of hand, bilateral, Back pain Discharge Plan Visit Data Chief Complaint: Back Injury/Pain ED Provider: Sathya Pedro Discharge Problem: Weakness, Bilateral leg paresthesia, Paresthesia of hand, bilateral, Back pain Forms Stand Alone Forms: My [facility] Prescriptions Prescriptions: No Action Artificial Tears 1 drp ophthalmic (eye) TID hydroxychloroquine 200 mg Tablet 400 mg PO DAILY albuterol sulfate 90 mcg/actuation Hfa Aerosol Inhaler 2 puff INHALATION QID PRN (Reason: Shortness Of Breath) hydrocortisone 2.5 % Ointment 1 applic TOPICAL DAILY PRN (Reason: Other) Alvesco 80 mcg/actuation Hfa Aerosol Inhaler 1 puff INHALATION BID gabapentin 100 mg capsule 100 mg PO UD Rx Instructions: 100 mg po daily unable to verify, not on list scanned to chart. Referrals Referrals: Grant ACKERMAN [Primary Care Provider] - Discharge Problem: Back pain Qualifiers: Back pain location: low back pain Chronicity: unspecified Back pain laterality: bilateral Sciatica presence: unspecified whether sciatica present Qualified Code(s): M54.50 - Low back pain, unspecified
[2024-05-30 11:29] LABS: Basophils # (auto) 0.03 K/uL (0.00-0.20); Basophils % (auto) 0.5 %; Eosinophils # (auto) 0.03 K/uL (0.00-0.50); Eosinophils % (auto) 0.5 %; Hematocrit (blood only) 44.3 % (42.0-52.0); Immature Granulocytes # (auto) 0.02 K/uL (0.01-0.20); Immature Granulocytes % (auto) 0.3 %; Lymphocytes # (auto) 1.46 K/uL (1.20-3.40); Lymphocytes % (auto) 22.9 %; Mean Corpuscular Hemoglobin 29.2 pg (25.0-34.0); Mean Corpuscular Hgb Conc 33.9 g/dL (32.0-36.0); Mean Corpuscular Volume 86.4 fL (80.0-100.0); Mean Platelet Volume 10.5 fL (9.4-12.4); Monocytes # (auto) 0.54 K/uL (0.11-0.59); Monocytes % (auto) 8.5 %; Neutrophils % (auto) 67.3 %; Platelet Count 252 K/uL (130-400); RDW Coefficient of Variation 12.5 % (11.5-14.5); RDW Standard Deviation 39.3 fL (36.4-46.3); Red Blood Count 5.13 M/uL (4.70-6.10); White Blood Count 6.38 K/ul (4.8-10.8)
[2024-05-30 11:41] LABS: Albumin Globulin Ratio 1.5 (0.9-2); Albumin Level 4.3 gm/dl (3.4-5.0); BUN Creatinine Ratio 20.3 (10-20); Bilirubin,Total 0.3 mg/dl (0.2-1.0); Calcium 9.6 mg/dl (8.6-10.3); Creatinine Clr Calc Pharmacy 148.2 ml/min; Est GFR (African American) 134.9 ml/min; Est GFR (Non-African American) 116.4 ml/min; Globulin 2.8 gm/dl (2.5-4.0); Potassium 4.1 mmol/L (3.5-5.1); Total Protein 7.1 gm/dl (6.0-8.3)
--- NOTE | 2024-05-30 11:57 | XRay Report ---
XR chest 1V portable CLINICAL HISTORY: weakness TECHNIQUE: Single frontal radiograph of the chest was obtained. Comparison: Comparison is made to chest radiograph 05/26/2024 FINDINGS: No lines and tubes are seen. The cardiomediastinal silhouette is normal. Elevation of the right hemid iaphragm is seen. No evidence of pleural effusion or pneumothorax. IMPRESSION: No acute chest disease. ACT 112: Negative or not required by law. Electronically signed by: Stefano Khalil M.D. 05/30/2024 11:55 AM
[2024-05-30 12:44] LABS: Troponin I High Sensitivity 17.5 pg/ml (0-20)
[2024-05-30] MEDS: GADOBUTROL 65ML VIAL IV ONE (13:48)
--- NOTE | 2024-05-30 14:32 | Magnetic Resonance Report ---
MRI OF THE BRAIN WITHOUT AND WITH IV CONTRAST CLINICAL HISTORY: numbness and weakness in body COMPARISON STUDY: Head CT and CTA of the head May 26, 2024. TECHNIQUE: Utilizing a 1.5 Faustina magnet and dedicated coil, multiplanar, multiecho imaging of the br ain was performed pre and postcontrast administration. IV administration of 8 mL of Gadavist contras t was uneventful. FINDINGS: There are no foci of restricted diffusion to suggest acute infarct. No acute intracranial h emorrhage, midline shift or mass effect is present. Brain volume is normal. Ventricular system is nor mal. Basal cisterns are patent. Flow-voids for the major intracranial vessels are present. There is n o intracranial mass or pathologic enhancement. No parenchymal signal abnormality is present. Calvaria l signal is normal. There is no evidence for sinusitis. There is no mastoid fluid. IMPRESSION: Unremarkable MRI of the brain. ACT 112: Negative or not required by law. Electronically signed by: Jcarlos Ferraro M.D. 05/30/2024 2:31 PM
--- NOTE | 2024-05-30 14:43 | Magnetic Resonance Report ---
MRI OF THE LUMBAR SPINE WITHOUT IV CONTRAST CLINICAL HISTORY: Lower extremity weakness. Low back pain. COMPARISON STUDY: Abdominal CT dated 05/23/2024. TECHNIQUE: MRI of the lumbar spine was performed utilizing various T1 and T2-weighted sequences in th e axial and sagittal planes. IV contrast was not administered for this examination. The examination i s compromised by motion artifact. FINDINGS: Lumbar spine: Vertebral body height and alignment are maintained throughout the lumbar spine. The tra nsverse and spinous processes appear intact. Tiny anterior osteophytes are seen throughout. There is no evidence of spondylolysis. A small hemangioma is noted in the body of L2. No destructive bony lesi on is seen. Intervertebral discs: There is mild disc desiccation. The disc spaces are maintained. Spinal cord: The visualized spinal cord is normal in morphology and signal intensity. The conus medul josselyn terminates at the T12-L1 interspace. The nerve roots of the cauda equina are normal in morpholo gy. L1-L2: There is minimal posterior disc bulge with annular fissure. The central canal and neural taqueria jolene are patent. L2-L3: Unremarkable. L3-L4: There is a central posterior disc protrusion eccentric to the left which abuts the transiting left sided nerve roots. There is no significant central canal stenosis. Lateral disc bulges contribut e to minimal bilateral subarticular stenosis. The neural foramina are patent. L4-L5: There is broad-based posterior disc bulge with annular fissure. This is eccentric to the left and impinges on the transiting left sided nerve roots. There is mild central canal stenosis at this l evel with a minimum AP canal diameter of 6.5 mm. Lateral disc bulge contributes to bilateral subartic ular stenosis which is greater on the left. This may impinge on the exiting bilateral L4 nerve roots. The neural foramina are patent. L5-S1: There is minimal posterior disc bulge with annular fissure. The central canal is clear. Right lateral disc bulge contributes to subarticular stenosis and may abut the exiting right L5 nerve root. Facet arthropathy is of no consequence. The neural foramina are patent. Sacrum: The visualized sacrum is normal in morphology and signal intensity. Soft tissues: The paraspinous soft tissues are within normal limits. The retroperitoneal structures a re grossly unremarkable but incompletely evaluated. IMPRESSION: 1. Degenerative disc disease and mild spondylosis as above, greatest at L3-L4 and L4-L5. See discussi on for detailed level by level analysis. 2. No destructive bony process is seen. Electronically signed by: Sean Ventura M.D. 05/30/2024 2:42 PM
--- NOTE | 2024-05-30 16:21 | History & Physical Report ---
Date of Service May 30, 2024 Assessment & Plan (1) Paresthesia of hand, bilateral: Plan: Acute/progressive over the past 7 days - No identified triggers or recent viral illnesses - CTH/CTA Head and Neck w/ severe spinal stenosis at C6-7, could consider referral to Dr. Myrick as outpatient if other neurologic conditions excluded - Obtain MRI neck w/ contrast to look for demyelinating lesions or cord compression - Fall precautions - Bedside swallow study to ensure can safely swallow then can have a regular diet - ESR ordered - CBC and CMP reviewed, no gross abnormal findings (2) Bilateral leg paresthesia: Plan: Acute/progressive over the past 7 days - MRI lumbar spine with some disc disease and spondylosis - Concerning regarding the ascending nature and progression of symptoms - Consult neurology due to high index of suspicion for Anita [place], I feel that he would benefit from LP - Consult PT/OT to eval and treat (3) Weakness: Plan: Acute and progressive, now with recent fall - Consult PT/OT to eval and treat as noted above (4) SLE (systemic lupus erythematosus): Plan: Chronic - On Plaquenil therapy which has been continued Plan Lovenox has been added for DVT ppx. CBC, BMP, and Mag have been ordered for tomorrow AM. Plan has been d/w Dr. Hong who will also see and evaluate this patient. Further orders as advised by attending. History of Present Illness Chief Complaint: Numbness/tingling and weakness Primary Care Provider: MEKA Garcia is a 53 yo male with a pmhx of SLE, asthma, and psoriasis who presents to [facility] for the third time in the past week due to complaints of numbness/tingling in his hands and feet that has been progressively worsening since his initial presentation on 05/23. He reports diminished sensation and generalized weakness and reportedly he fell at the long term. He denies difficulty breathing or trouble swallowing. He denies any recent viral illnesses or vaccinations. He denies loss of bowel or bladder dysfunction. He is having some back pain. During his past 3 visits, he has undergone extensive scanning including CTH, CTA head/neck, and today an MRI of the lumbar spine was completed. He does have some disc disease noted on MRI but no other grossly abnormal findings to explain his symptoms. His CTA neck from 05/26 noted severe spinal stenosis at C6-7. His labs are otherwise stable and his only current concern is whether he can eat. He has been referred to the hospital medicine team for admission. Allergies Allergy/AdvReac Type Severity Reaction Status Date / Time Penicillins AdvReac Severe Difficulty Verified 05/23/24 12:58 Breathing Home Medications Medication Instructions Recorded Confirmed Type Artificial Tears 1 drp ophthalmic (eye) TID 05/30/24 05/30/24 History albuterol sulfate 90 mcg/actuation 2 puff inhalation QID PRN 05/30/24 05/30/24 History aerosol inhaler Shortness Of Breath ciclesonide 80 mcg/actuation 1 puff inhalation BID 05/30/24 05/30/24 History aerosol inhaler (Alvesco) gabapentin 100 mg capsule 100 mg PO UD 05/30/24 05/30/24 History hydrocortisone 2.5 % topical 1 applic topical DAILY PRN Other 05/30/24 05/30/24 History ointment hydroxychloroquine 200 mg tablet 400 mg PO DAILY 05/30/24 05/30/24 History Past Med/Surg History Problem List (Updated 05/30/24 @ 17:11 by Sathya Pedro MD) Back pain (Acute) SLE (systemic lupus erythematosus) Weakness (Acute) Numbness and tingling of right side of face (Acute) Paresthesia of hand, bilateral (Acute) Bilateral leg paresthesia (Acute) Head pain (Acute) Acute ITP Thrombocytopenia (Acute) Family History (Updated 05/30/24 @ 16:52 by Ana Sanders PA-C) Other Cancer Dementia Social History Smoking Status: Never smoker Tobacco Type: Cigarettes Hx Alcohol Use: No Hx Substance Use: No Preferred Language: Bengali Communication Ability: Effective 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 Denies fever, chills, fatigue, headache, nasal congestion, sore throat, cough, chest pain, shortness of breath, palpitations, orthopnea, PND, abdominal pain, n/v/d, constipation, dysuria, hematuria, frequency, joint pain or swelling, easy bruising or bleeding, skin lesions or rashes. Physical Exam 2 Physical Exam: GENERAL: 53 yo Well-developed, well-nourished male. NAD. EYES: EOMI. PERRLA. Anicteric. HENT: Moist mucous membranes. No scleral icterus. No cervical lymphadenopathy. LUNGS: Clear to auscultation bilaterally. No W/R/R. CARDIOVASCULAR: Regular rate and rhythm. ABDOMEN: Soft, non-tender and non-distended. BS normoactive x 4 quad. EXTREMITIES: No edema. Non-tender. Peripheral pulses +2/4. NEUROLOGIC: A&O x3. Diminished sensation on all 4 extremities. Questionable dysarthria. No facial droop or tongue deviation. Globally diminished strength in all 4 extremities. No other gross neurologic deficits. PSYCHIATRIC: Cooperative. Appropriate mood and affect. SKIN: Warm, dry, intact. No rashes or lesions. Results & Data Results & Data Vital Signs (Past 12 Hours) Vital Signs Temp Pulse Pulse Resp BP BP Pulse Ox 05/30/24 16:00 94 H 18 127/91 97 05/30/24 14:48 86 18 143/104 H 98 05/30/24 14:30 136/98 98 05/30/24 14:21 96 05/30/24 14:03 133/93 05/30/24 12:51 73 17 138/93 97 05/30/24 12:12 67 18 130/92 97 05/30/24 12:03 82 21 127/93 96 05/30/24 10:51 73 05/30/24 10:30 37 C 89 21 134/96 96 O2 Del Method 05/30/24 16:00 Room Air 05/30/24 14:48 05/30/24 14:30 05/30/24 14:21 05/30/24 14:03 05/30/24 12:51 05/30/24 12:12 05/30/24 12:03 05/30/24 10:51 05/30/24 10:30 Room Air Laboratory Results 05/30/24 10:38 05/30/24 10:38 Diagnostic Findings Brain MRI 05/30/24 11:09 MRI OF THE BRAIN WITHOUT AND WITH IV CONTRAST CLINICAL HISTORY: numbness and weakness in body COMPARISON STUDY: Head CT and CTA of the head May 26, 2024. TECHNIQUE: Utilizing a 1.5 Faustina magnet and dedicated coil, multiplanar, multiecho imaging of the brain was performed pre and postcontrast administration. IV administration of 8 mL of Gadavist contrast was uneventful. FINDINGS: There are no foci of restricted diffusion to suggest acute infarct. No acute intracranial hemorrhage, midline shift or mass effect is present. Brain volume is normal. Ventricular system is normal. Basal cisterns are patent. Flow- voids for the major intracranial vessels are present. There is no intracranial mass or pathologic enhancement. No parenchymal signal abnormality is present. Calvarial signal is normal. There is no evidence for sinusitis. There is no mastoid fluid. IMPRESSION: Unremarkable MRI of the brain. ACT 112: Negative or not required by law. Electronically signed by: Jcarlos Ferraro M.D. 05/30/2024 2:31 PM Chest X-Ray 05/30/24 11:11 XR chest 1V portable CLINICAL HISTORY: weakness TECHNIQUE: Single frontal radiograph of the chest was obtained. Comparison: Comparison is made to chest radiograph 05/26/2024 FINDINGS: No lines and tubes are seen. The cardiomediastinal silhouette is normal. Elevation of the right hemidiaphragm is seen. No evidence of pleural effusion or pneumothorax. IMPRESSION: No acute chest disease. ACT 112: Negative or not required by law. Electronically signed by: Stefano Khalil M.D. 05/30/2024 11:55 AM Lumbar Spine MRI 05/30/24 12:45 MRI OF THE LUMBAR SPINE WITHOUT IV CONTRAST CLINICAL HISTORY: Lower extremity weakness. Low back pain. COMPARISON STUDY: Abdominal CT dated 05/23/2024. TECHNIQUE: MRI of the lumbar spine was performed utilizing various T1 and T2- weighted sequences in the axial and sagittal planes. IV contrast was not administered for this examination. The examination is compromised by motion artifact. FINDINGS: Lumbar spine: Vertebral body height and alignment are maintained throughout the lumbar spine. The transverse and spinous processes appear intact. Tiny anterior osteophytes are seen throughout. There is no evidence of spondylolysis. A small hemangioma is noted in the body of L2. No destructive bony lesion is seen. Intervertebral discs: There is mild disc desiccation. The disc spaces are maintained. Spinal cord: The visualized spinal cord is normal in morphology and signal intensity. The conus medullaris terminates at the T12-L1 interspace. The nerve roots of the cauda equina are normal in morphology. L1-L2: There is minimal posterior disc bulge with annular fissure. The central canal and neural foramina are patent. L2-L3: Unremarkable. L3-L4: There is a central posterior disc protrusion eccentric to the left which abuts the transiting left sided nerve roots. There is no significant central canal stenosis. Lateral disc bulges contribute to minimal bilateral subarticular stenosis. The neural foramina are patent. L4-L5: There is broad-based posterior disc bulge with annular fissure. This is eccentric to the left and impinges on the transiting left sided nerve roots. There is mild central canal stenosis at this level with a minimum AP canal diameter of 6.5 mm. Lateral disc bulge contributes to bilateral subarticular stenosis which is greater on the left. This may impinge on the exiting bilateral L4 nerve roots. The neural foramina are patent. L5-S1: There is minimal posterior disc bulge with annular fissure. The central canal is clear. Right lateral disc bulge contributes to subarticular stenosis and may abut the exiting right L5 nerve root. Facet arthropathy is of no consequence. The neural foramina are patent. Sacrum: The visualized sacrum is normal in morphology and signal intensity. Soft tissues: The paraspinous soft tissues are within normal limits. The retroperitoneal structures are grossly unremarkable but incompletely evaluated. IMPRESSION: 1. Degenerative disc disease and mild spondylosis as above, greatest at L3-L4 and L4-L5. See discussion for detailed level by level analysis. 2. No destructive bony process is seen. Electronically signed by: Sean Ventura M.D. 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 This has progressed to the point where he is having difficulty walking. Patient has known spinal stenosis of C6/C7, given this MRI of C-spine was to look for signs of cord compression. At time of attending assessment patient describes a ascending course which started in his toes and has progressed up with numbness through the upper extremities and including the face. He has been become progressively weak over the last few days. 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 Diminished patellar DTR, weak 1+ Achilles DTR bilaterally. No inducible ankle clonus. also has some dysarthria. Lyme testing and talk screen are pending. Given ascending deficits and weakness was discussed with neurology. Agree LP is indicated. At time assessment patient had received Lovenox DVT prophylaxis, this was discontinued and will reassess for LP in 24 hours. Negative inspiratory force and vital capacity ordered from respiratory therapy and monitored with every 4 hours respiratory checks on PCU overnight. No fevers or chills. No leukocytosis. PG Care Time/CCT Total # of Minutes Spent Total Time Spent with Patient: Total time spent is greater than 50% in coordination of care (as documented) at patient's floor/unit and/or counseling patient: 77 minutes Coding Level of Care Code 51332 INT INP/OBS CARE 3/75MIN Diagnoses Paresthesia of hand, bilateral R20.2 Bilateral leg paresthesia R20.2 Weakness R53.1 SLE (systemic lupus erythematosus) M32.9
[2024-05-30] MEDS ORDERED: HYDROCORTISONE 2.5% OINT 20 GM TUBE TOP PRN (17:30)
[2024-05-30] MEDS ORDERED: ALUMINUM/MAGNESIUM SUSP 30 ML UDC PO PRN (17:30)
[2024-05-30] MEDS ORDERED: ONDANSETRON INJ 2 MG/ML 2 ML VIAL IV PRN (17:30)
[2024-05-30] MEDS ORDERED: ALBUTEROL HFA 8 GM INHALER INH PRN (17:30)
[2024-05-30] MEDS: ACETAMINOPHEN 325 MG TAB PO PRN (18:28)
[2024-05-30] MEDS: ENOXAPARIN INJ 40 MG/0.4 ML SYR SQ SCH (18:46)
[2024-05-30 21:04] LABS: Base Excess VBG 2.4 mEq/L; HCO3 VBG 27 mmol/L; Oxygen Saturation VBG 66.7 %; PCO2 VBG 42 mmHg (38-50); PO2 VBG 38 mmHg; pH VBG 7.42 (7.36-7.41)
[2024-05-30] MEDS: ARTIFICIAL TEARS OP SCH (21:20)
--- NOTE | 2024-05-30 22:52 | Electrocardiogram Report ---
Test Reason : Blood Pressure : */* mmHG Vent. Rate : 77 BPM Atrial Rate : 77 BPM P-R Int : 136 ms QRS Dur : 86 ms QT Int : 392 ms P-R-T Axes : 39 -8 41 degrees QTcB Int : 443 ms Normal sinus rhythm Normal ECG When compared with ECG of 26-May-2024 20:09, No significant change was found Confirmed by Ronan Ragsdale ([id number]) on 05/30/2024 10:51:42 PM Referred By: REFERRED SELF Confirmed By: Ronan Ragsdale
[2024-05-31 00:25] LABS: Appearance Urine Clear (Clear); Bilirubin Urine Negative (Negative); Blood Urine Negative (Negative); Color Urine Yellow; Glucose Urine UA Negative (Negative); Ketones Urine Negative (Negative); Leukocyte Esterase Urine Negative (Negative); Nitrite Urine Negative (Negative); Protein Urine Negative (Negative); Specific Gravity Urine 1.017 (1.000-1.030); Urobilinogen Urine Negative (Negative); pH Urine 5.5 (4.5-7.5)
[2024-05-31 00:54] LABS: Amphetamines+Metham, Urine Neg (Neg); Barbiturates, Urine Neg (Neg); Benzodiazepine, Urine Neg (Neg); Cocaine, Urine Neg (Neg); Fentanyl, Urine Neg (Neg); MDMA (Ecstacy), Urine Neg (Neg); Marijuana, Urine Neg (Neg); Methadone, Urine Neg (Neg); Opiate, Urine Neg (Neg); Phencyclidine, Urine Neg (Neg)
[2024-05-31 03:16] LABS: Base Excess VBG 1.8 mEq/L; HCO3 VBG 26 mmol/L; Oxygen Saturation VBG 93.2 %; PCO2 VBG 37 mmHg (38-50); PO2 VBG 64 mmHg; pH VBG 7.45 (7.36-7.41)
[2024-05-31 03:33] LABS: Basophils # (auto) 0.03 K/uL (0.00-0.20); Basophils % (auto) 0.5 %; Eosinophils # (auto) 0.06 K/uL (0.00-0.50); Eosinophils % (auto) 1.1 %; Hematocrit (blood only) 44.6 % (42.0-52.0); Hemoglobin 15.1 g/dl (14.0-18.0); Immature Granulocytes # (auto) 0.01 K/uL (0.01-0.20); Immature Granulocytes % (auto) 0.2 %; Lymphocytes # (auto) 1.76 K/uL (1.20-3.40); Lymphocytes % (auto) 30.9 %; Mean Corpuscular Hemoglobin 29.2 pg (25.0-34.0); Mean Corpuscular Hgb Conc 33.9 g/dL (32.0-36.0); Mean Corpuscular Volume 86.3 fL (80.0-100.0); Mean Platelet Volume 10.3 fL (9.4-12.4); Monocytes # (auto) 0.47 K/uL (0.11-0.59); Monocytes % (auto) 8.2 %; Neutrophils # (auto) 3.37 K/uL (1.40-6.50); Neutrophils % (auto) 59.1 %; Platelet Count 267 K/uL (130-400); RDW Coefficient of Variation 12.5 % (11.5-14.5); RDW Standard Deviation 39.3 fL (36.4-46.3); Red Blood Count 5.17 M/uL (4.70-6.10)
[2024-05-31 03:38] LABS: BUN Creatinine Ratio 18.3 (10-20); Calcium 9.5 mg/dl (8.6-10.3); Creatinine Clr Calc Pharmacy 123.2 ml/min; Est GFR (Non-African American) 107.9 ml/min; Potassium 4.1 mmol/L (3.5-5.1)
[2024-05-31] MEDS: LACTATED RINGER'S 1,000 ML IV SCH (03:52)
[2024-05-31] MEDS: ACETAMINOPHEN 1,000 MG/100 ML VIAL IV PRN (06:30)
[2024-05-31 08:40] LABS: Base Excess VBG 3.4 mEq/L; HCO3 VBG 27 mmol/L; Oxygen Saturation VBG 97.8 %; PCO2 VBG 36 mmHg (38-50); PO2 VBG 83 mmHg; pH VBG 7.48 (7.36-7.41)
[2024-05-31] MEDS: oxyCODONE HCL IR 5 MG TAB (IMMEDIATE RELEASE) PO PRN (08:47)
[2024-05-31] MEDS: FLUTICASONE FUROATE 100MCG 14 PUFFS/INHALER INH SCH (09:00)
--- NOTE | 2024-05-31 10:35 | Neurology Consultation ---
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 His symptoms began 10 days ago and have gotten considerably worse. 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 His speech is mildly dysarthric. He also complains of diplopia which is likely related, although no obvious ocular motility abnormality on examination. He does not have ptosis. His numbness and paresthesias have progressed as well since onset and involve all 4 limbs, and more recently the face and lips. He does have significant vibratory loss as well as proprioceptive loss at the toes. His deep tendon reflexes are markedly reduced, especially for the legs, absent at the patellar and Achilles tendons bilaterally. MRI of the cervical spine pending, I agree with obtaining this test. A cervical myelopathy may sometimes cooccur with Guillain-Story syndrome and would be difficult to diagnose on his examination given his markedly reduced deep tendon reflexes and weakness. A lumbar puncture would be ideal to assess for albuminocytologic dissociation. However, at this point, I would not delay treatment with IVIG. Would recommend 0.4 mg/kg/day for 5 days. Pretreatment with 500 mL of normal saline, 650 mg of acetaminophen, and 25 mg of diphenhydramine, both 30 minutes before the infusi on. Pharmacy may assist with IVIG protocol. May order a lumbar puncture to be done under fluoroscopy in radiology. Could wait until Sunday if necessary. Given that he does have signs and symptoms of cranial nerve involvement, would recommend checking a serum GQ1b antibody to assess for possible Mo Barillas syndrome variant of GBS. An EMG can be performed as an outpatient, abnormal findings are typically most pronounced in 3 to 4 weeks after symptom onset. Continue monitoring of respiratory function, NIF, FVC. If patient develops clinical signs of respiratory failure, would need to be moved to the ICU, intubated if necessary. Please call with any questions. History of Present Illness Reason for Consultation: weakness and numbness Requesting Physician: Marilyn Attending Physician: Sherman Alva, History of Present Illness The patient is a 53-year-old male inmate who presents with a 10-day history of ascending numbness, tingling, and associated weakness of the limbs. He has been to the emergency department on several occasions for his symptoms which have been progressive. 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 He also complains of more recent numbness of the lower face and lips, as well as intermittent diplopia. His speech is also slightly dysarthric. He denies any difficulty with swallowing at this time. He does not report any shortness of breath. He denies any antecedent illness, infection, or vaccination. He has a history of ITP and was treated with IVIG this past December. History also notable for SLE and psoriasis. He had a CTA of the head and neck completed May 26 which was unremarkable. A brain MRI completed May 30 was unremarkable as well, no hemorrhage or acute process, I did independently review these images. A lumbar spine MRI completed May 30 revealed degenerative disc disease at multiple levels, no significant central canal stenosis, there is leftward neuroforaminal narrowing due to a bulging disc at L4-5 and a rightward bulging disc at L5-S1. I independently reviewed these images as well. A chest x-ray is negative for acute disease. Allergies Allergy/AdvReac Type Severity Reaction Status Date / Time Penicillins AdvReac Severe Difficulty Verified 05/23/24 12:58 Breathing Home Medications Medication Instructions Recorded Confirmed Type Artificial Tears 1 drp ophthalmic (eye) TID 05/30/24 05/30/24 History albuterol sulfate 90 mcg/actuation 2 puff inhalation QID PRN 05/30/24 05/30/24 History aerosol inhaler Shortness Of Breath ciclesonide 80 mcg/actuation 1 puff inhalation BID 05/30/24 05/30/24 History aerosol inhaler (Alvesco) gabapentin 100 mg capsule 100 mg PO UD 05/30/24 05/30/24 History hydrocortisone 2.5 % topical 1 applic topical DAILY PRN Other 05/30/24 05/30/24 History ointment hydroxychloroquine 200 mg tablet 400 mg PO DAILY 05/30/24 05/30/24 History Patient History Family History (Updated 05/30/24 @ 16:52 by Ana Sanders PA-C) Other Cancer Dementia Social History Smoking Status: Never smoker Tobacco Type: Cigarettes Hx Alcohol Use: No Hx Substance Use: No Preferred Language: Barbadian Communication Ability: Effective Concrete Foreman Required: No Beliefs That Will Affect Care: None Current Living Situation: Other Current Living Situation Comment: correctional facility Feels Safe at Home: Hesitant to Answer Assistive Devices: None Review of Systems Constitutional: no fever and no chills Eyes: as per Subjective / HPI and + diplopia; no blind spots Ear, Nose, Mouth, Throat: no hearing loss Respiratory: no cough and no dyspnea Cardiovascular: no chest pain and no palpitations Gastrointestinal: no nausea, no vomiting and no diarrhea/loose stools Genitourinary: + difficulty urinating Musculoskeletal: + back pain, + neck pain and + muscle we akness Integumentary: + rash (Psoriatic rash on elbows) Neurologic: as per Subjective / HPI, + gait abnormality, + generalized weakness and + abnormal speech; no tremor(s), no abnormal movements, no headache(s), no confusion and no memory loss Psychiatric: no depression and no anxiety Hematologic / Lymphatic: no easy bleeding and no easy bruising Exam (Neuro) Constitutional: well developed and well nourished; no acute distress Eyes: normal visual gaffney by confrontation, PERRL and EOM intact bilaterally; no nystagmus Neurologic: Oriented to:: Person, Place and Time Memory: Short Term Intact and Remote Intact Attention: Span Intact and Concentration Intact Speech Fluency: Dysarthria (Mild); negative Dysfluency Speech Aphasia: negative Aphasia Fund of Knowledge: Current Events, Past History and Vocabulary Cranial Nerves: Normal II, III, IV, , V, VIII, IX, X, XI and XII; Abnorm VII (Mild bifacial weakness) Motor Strength: negative Normal Lower Extremities or Normal Upper Extremities Motor Tone: Normal Lower Extremities and Normal Upper Extremities Muscle Bulk/Involuntary Movements: No Involuntary Movements; negative Muscle Atrophy Sensation: Light Touch Intact and Pain/Temperature Intact; negative Vibration Intact or Proprioception Intact Coordination: Finger-Nose Abnormal and Heel-Ball Abnormal; negative Dysdiadochokinesia Deep Tendon Reflexes: Rt Triceps: 1+, Lt Triceps: 1+, Rt Biceps: 1+, Lt Biceps: 1+, Rt Brachioradialis: 1+, Lt Brachioradialis: 1+, Rt Patellar: 0, Lt Patellar: 0, Rt Ankle: 0 and Lt Ankle: 0 Special Tests: negative Babinski Present Details: Gait cannot be tested. 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 Results & Data Vital Signs (Past 12 Hours) Vital Signs Temp Pulse Pulse Resp BP Pulse Ox O2 Del Method 05/31/24 08:00 36.8 C 79 18 141/94 H 95 Room Air 05/31/24 07:44 83 96 Room Air 05/31/24 07:08 72 05/31/24 03:24 36.8 C 81 18 117/82 94 Room Air 05/31/24 03:00 36.6 C 87 15 122/93 98 Room Air 05/31/24 00:16 93 H 05/30/24 23:54 36.5 C 103 H 18 135/91 97 Room Air Laboratory Results WBC 5.70, hemoglobin 15.1, hematocrit 44.6, MCV 86.3, platelet count 267, ESR 2 6, sodium 137, potassium 4.1, BUN 13, creatinine 0.71, glucose 107, calcium 9.5, magnesium 2.0, AST 18, ALT 19, total CK1 43, high-sensitivity troponin 17.5, he did have a low vitamin B12 level this past December,, a TSH at that time was normal, 2.947, Diagnostic Findings CTA of the head and neck, brain MRI, and lumbar spine MRI are as described in the history of present illness. Electrocardiogram reveals a normal sinus rhythm, 77 bpm. Coding Level of Care Code 06423 INT INP/OBS CARE 3/75MIN Diagnoses GBS (Guillain [place]amber[place] syndrome) G61.0 Time Spent (min) 90 Comment Total time includes patient contact, chart review, counseling, note preparation
[2024-05-31] MEDS: HYDROXYCHLOROQUINE SULFATE 200 MG TAB PO SCH (10:39)
[2024-05-31] MEDS: GABAPENTIN 100 MG CAP PO SCH (10:40)
[2024-05-31] MEDS ORDERED: IMMUNE GLOBULIN (HUMAN) SOLN IV SCH (11:45)
[2024-05-31] MEDS: GADOBUTROL 30ML VIAL IV ONE (12:26)
[2024-05-31] MEDS: ACETAMINOPHEN 325 MG TAB PO SCH (13:09)
[2024-05-31] MEDS: diphenhydrAMINE Capsule 25 MG CAP PO SCH (13:09)
[2024-05-31] MEDS: SODIUM CHLORIDE 0.9% 500 ML IV SCH (13:12)
--- NOTE | 2024-05-31 13:24 | Hospitalist Progress Note ---
Date of Service May 31, 2024 Assessment & Plan (1) GBS (Guillain [place] syndrome): (2) Back pain: (3) SLE (systemic lupus erythematosus): Plan # Guillain [place] Syndrome IVIg 4mg/kg daily x 5 days Pretreat with NSS, Benadryl, Tylenol NIF per respiratory therapy protocol q4h Obtain LP Fall precautions PT/OT No identified triggers or recent viral illnesses CTH/CTA Head and Neck w/ severe spinal stenosis at C6-7, could consider referral to Dr. Myrick as outpatient if other neurologic conditions excluded Obtain MRI neck w/ contrast to look for demyelinating lesions or cord compression MRI lumbar spine with some disc disease and spondylosis # Back Pain Tylenol, oxycodone PRN # SLE (systemic lupus erythematosus): On Plaquenil therapy which has been continued FENGI: clears, advance as tolerated Code status: Full DVT prophylaxis: Lovenox, held in setting of LP Isolation: none Disposition: PCU Admission and Anticipated Discharge Date Admission Date: May 30, 2024 Supervising Physician Co-Signing Physician Notes I personally examined the patient and verified all coles points of history and exam, discussed case, and agree with decision making with Dr Vuong ongoing numbness and weakness. Vitals noted, in general he is awake and alert pleasant no distress but does appear fatigued. Weakness noted. Neurology input appreciated. Guillain-Barrstart IVIG. Likely to get LP later today. Supportive care. Likely will need prolonged rehab after he is past the acute phase. after LP resume lovenox for DVT proph Subjective Patient seen and evaluated at bedside this morning. No acute events overnight. Pt states his back hurts and he unable to reposition himself in bed Review of Systems Review of Systems: reviewed, per HPI Physical Exam Physical Exam: Constitutional: well-appearing, no acute distress HEENT: NCAT, no conjunctival injection CV: clinically well perfused Resp: no increased WOB GI: non distended MSK: no gross deformities appreciated Skin: warm, dry, no rash appreciated Neuro: b/l UE and LE weakness Results & Data Results & Data Vital Signs (Past 12 Hours) Vital Signs Temp Pulse Pulse Resp BP Pulse Ox O2 Del Method 05/31/24 08:00 36.8 C 79 18 141/94 H 95 Room Air 05/31/24 07:44 83 96 Room Air 05/31/24 07:08 72 05/31/24 03:24 36.8 C 81 18 117/82 94 Room Air 05/31/24 03:00 36.6 C 87 15 122/93 98 Room Air (2) Back pain Back pain laterality: bilateral Back pain location: low back pain Chronicity: unspecified Sciatica presence: unspecified whether sciatica present Qualified Code(s): M54.50 - Low back pain, unspecified
[2024-05-31] MEDS: Octagam 10% IVIG 5 gram bottle IV SCH (13:55)
--- NOTE | 2024-05-31 14:22 | Billing Data ---
Date of Service May 31, 2024 Coding Level of Care Code 88316 SUB INP/OBS CARE
[2024-05-31] MEDS: Octagam 10% IVIG 10 gram bottle IV SCH (14:52)
--- NOTE | 2024-05-31 15:40 | Magnetic Resonance Report ---
MRI OF THE CERVICAL SPINE COMBO CLINICAL HISTORY: Ascending paralysis. Whole body weakness and numbness of 1 week's duration. COMPARISON STUDY: CT angiogram of the neck dated 05/26/2024. TECHNIQUE: MRI of the cervical spine was performed utilizing various T1 and T2-weighted sequences in the axial and sagittal planes. Contrast enhanced sequences are acquired following the IV administrati on of 8.3 cc of Gadavist. FINDINGS: Cervical spine: Vertebral body height and alignment are maintained throughout the cervical spine. The re is straightening of the cervical lordosis. Small anterior osteophytes are seen throughout. The jules antodental articulation is maintained. The spinous processes appear intact. There is mild chronic deg enerative endplate change noted at C5-C6 and C6-C7. No destructive bony lesion is seen. Intervertebral discs: Disc desiccation is seen throughout the cervical spine. There is mild loss of h eight at C5-C6 and C6-C7. Spinal cord: The cervical cord is normal in morphology and signal intensity. No abnormal postcontrast enhancement is identified. C2-C3: Unremarkable. C3-C4: Mild facet arthropathy is of no consequence. The central canal and neural foramina are patent. C4-C5: Mild facet arthropathy is of no consequence. The central canal and neural foramina are patent. C5-C6: Mild facet arthropathy is of no consequence. The central canal and neural foramina are patent. C6-C7: A tiny posterior disc osteophyte complex minimally effaces the ventral subarachnoid space. Unc overtebral and facet arthropathy contribute to [id number] left neural foraminal stenosis. The r ight neural foramen is patent. C7-T1: Unremarkable. Soft tissues: The prevertebral and paraspinous soft tissues are within normal limits. Brain parenchyma: The imaged brain parenchyma at the skull base is normal as visualized. IMPRESSION: 1. Minimal spondylotic change as above with no significant central canal stenosis. See discussion for detailed level by level analysis. 2. No destructive bony process is seen. 3. The cervical cord is normal in morphology and signal intensity with no abnormal postcontrast enhan cement identified. Dictated: 05/31/2024 12:32 PM Transcribed: 05/31/2024 1:12 PM Karel [id number] Keon [id number] Electronically signed by: Sean Ventura M.D. 05/31/2024 3:05 PM
[2024-05-31] MEDS: Octagam 10% IVIG 20 gram bottle IV SCH (15:58)
--- NOTE | 2024-05-31 19:50 | Procedure Note ---
Procedure Note Date of Service May 31, 2024 Lumbar Puncture Procedure Note Date: 05/31/2024, time at start of procedure 6:30 PM INDICATION: Suspected Guillain Ste[place] Syndrome PROCEDURE ADJUDICATION SPECIALIST: Jordan Hong MD ATTENDING PHYSICIAN: Jordan Hong MD ASSISTING RESIDENT PHYSICIAN: Bishnu Vuong DO Consent was performed prior to procedure. He is indicated for evaluation of suspected Gamber a syndrome. Risks and benefits of performing the procedure were reviewed, along with risks of not performing the procedure. Specifically risk of nerve damage, bleeding, headache, hematoma formation, CSF leak which may require blood patch, and headache were reviewed. Patient agreeable to procedure, signed consent obtained and witnessed by nurse at bedside. A timeout was performed prior to procedure verifying patient name, date of , site, and LP as procedure. Suture was performed by attending physician Dr. Hong with the assistance of resident physician Bishnu meraz using pelvic landmarks the L3-L4 interspace was palpated and identified, and target area was marked using a needle. Skin was cleansed in the usual fashion with chlorhexidine and drape was applied. Sterile gown attire including gown and gloves were donned in the usual fashion. 1% lidocaine was used to raise a wheel and then anesthetize surrounding skin area in the usual fashion, syringe was withdrawn prior to injecting lidocaine to confirm no bloody flash. A 3.5 inch spinal needle was advanced into the L3-L4 interspace, this is slowly advanced until a soft Pap was appreciated and the stylette was subsequently removed. Clear cerebrospinal fluid was obtained with slow flow. Tubes 13 were filled with slightly over 1 cc of clear spinal fluid, tube 4 was filled with 4 cc of CSF. Stylette was replaced and spinal needle subsequently withdrawn, a small amount of pressure was applied with gauze at the insertion site and then a Band-Aid was applied. There was no bleeding or complications during procedure. Patient tolerated procedure well and without difficulty. No headache following procedure. CSF tubes were sent for the usual tests including gram stain and culture, glucose, protein, with additional encephalitis panel send out. Following procedure patient was instructed to lay flat for 30 minutes. Post LP headache counseling was provided. Patient did not have any leg tingling, or new/worsening numbness/weakness compared to preprocedure. Estimated blood loss was less than <1 cc. She is not have any Lovenox for DVT prophylaxis for a minimum of 24 hours. Coding Additional Codes Date of Service ([facility].SURGERY)
[2024-05-31 20:15] LABS: Appearance CSF Clear; CSF Count Tube # 3; Color CSF Colorless
[2024-05-31 20:17] LABS: CSF Xanthrochromic Xanthochromic; Red Blood Cell CSF Manual 1900 (0-); White Blood Cell CSF Manual 0 (0-5)
[2024-05-31 20:25] LABS: Total Protein CSF 278.6 mg/dl (15-45)
[2024-05-31 21:30] LABS: Cryptococcus neoformans/ga PCR Not Detected (NotDetected); Cytomegalovirus PCR Not Detected (NotDetected); Enterovirus PCR Not Detected (NotDetected); Escherichia coli K1 PCR Not Detected (NotDetected); Haemophilius influenzae PCR Not Detected (NotDetected); Herpes Simplex Virus 1 PCR Not Detected (NotDetected); Herpes Simplex Virus 2 PCR Not Detected (NotDetected); Human Herpes Virus 6 PCR Not Detected (NotDetected); Human Parechovirus PCR Not Detected (NotDetected); Listeria monocytogenes PCR Not Detected (NotDetected); Neisseria meningitidis PCR Not Detected (NotDetected); Streptococcus agalactiae PCR Not Detected (NotDetected); Streptococcus pneumoniae PCR Not Detected (NotDetected); Varicella Zoster Virus PCR Not Detected (NotDetected)
[2024-06-01] MEDS: POLYETHYLENE (MIRALAX) 17 GM PACK PO PRN (09:08)
--- NOTE | 2024-06-01 11:21 | Hospitalist Progress Note ---
Date of Service June 01, 2024 Assessment & Plan (1) GBS (Guillain [place] syndrome): (2) Back pain: (3) SLE (systemic lupus erythematosus): Plan # Guillain [place] Syndrome IVIg 4mg/kg daily (Day 2/5) Pretreat with NSS, Benadryl, Tylenol NIF per respiratory therapy protocol q4h LP performed with elevated protein in CSF consistent with GBS Fall precautions PT/OT No identified triggers or recent viral illnesses CTH/CTA Head and Neck w/ severe spinal stenosis at C6-7, could consider referral to Dr. Myrick as outpatient if other neurologic conditions excluded Obtain MRI neck w/ contrast to look for demyelinating lesions or cord compression: negative MRI lumbar spine with some disc disease and spondylosis # Back Pain Tylenol, oxycodone PRN # SLE (systemic lupus erythematosus): On Plaquenil therapy which has been continued FENGI: clears, advance as tolerated Code status: Full DVT prophylaxis: Lovenox, held in setting of LP Isolation: none Disposition: PCU Admission and Anticipated Discharge Date Admission Date: May 30, 2024 Supervising Physician Co-Signing Physician Notes I personally examined the patient and verified all coles points of history and exam, discussed case, and agree with decision making with Dr Vuong no new changes. d/w neuro, input appreciated. discussed dx/plan again with pt. Vitals noted, in general he is awake and alert pleasant no distress but does appear fatigued. Weakness noted. breathing unlabored. Guillain-Moss IVIG day 2. LP with high protein. continue hospitalization and supportive care. once past acute phase/once stable enough to leave hospital - would benefit from rehab. would ask that case management start to work with intermediate about this so that he can likely go from hospital to rehab once stable enough resume lovenox for DVT proph tonight. (LP done 630p yesterday) Subjective Patient seen and evaluated at bedside this morning. No acute events overnight. Reports back pain at site of lumbar puncture and headache. Otherwise, NAD Review of Systems Review of Systems: reviewed, per HPI Physical Exam Physical Exam: Constitutional: well-appearing, no acute distress HEENT: NCAT, no conjunctival injection CV: clinically well perfused Resp: no increased WOB GI: non distended MSK: no gross deformities appreciated Skin: warm, dry, no rash appreciated Neuro: b/l UE and LE weakness Results & Data Results & Data Vital Signs (Past 12 Hours) Vital Signs Temp Pulse Pulse Resp BP Pulse Ox O2 Del Method 06/01/24 07:57 36.4 C L 91 H 18 145/99 H 97 Room Air 06/01/24 07:18 67 06/01/24 03:35 36.6 C 83 20 120/83 95 Room Air Resident Activity Tracking Resident Involvement: Resident Care Provided Care Provided: Adult Hospital Medicine (2) Back pain Back pain laterality: bilateral Back pain location: low back pain Chronicity: unspecified Sciatica presence: unspecified whether sciatica present Qualified Code(s): M54.50 - Low back pain, unspecified
--- NOTE | 2024-06-01 12:16 | Neurology Progress Note ---
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 Plan to continue with IVIG for a total of 5 days. No evidence of cervical myelopathy on yesterday's MRI. Consider checking a serum GQ1b antibody to assess for possible Mo Barillas syndrome variant of GBS. An EMG can be performed as an outpatient, abnormal findings are typically most pronounced in 3 to 4 weeks after symptom onset. Continue monitoring of respiratory function, NIF, FVC. If patient develops clinical signs of respiratory failure, would need to be moved to the ICU, intubated if necessary. Continue supportive medical care. Admission and Anticipated Discharge Date Admission Date: May 30, 2024 Subjective Follow-up regarding Guillain-Story syndrome No significant change in patient's signs or symptoms compared with yesterday. 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 He did have a lumbar puncture completed yesterday and does endorse some low back pain this morning. IVIG was started yesterday for treatment of GBS. Results & Data Vital Signs (Past 12 Hours) Vital Signs Temp Pulse Pulse Resp BP Pulse Ox O2 Del Method 06/01/24 11:33 36.7 C 83 18 128/87 96 Room Air 06/01/24 07:57 36.4 C L 91 H 18 145/99 H 97 Room Air 06/01/24 07:18 67 06/01/24 03:35 36.6 C 83 20 120/83 95 Room Air Diagnostic Findings Lumbar spine with and without contrast completed yesterday reveals mild multilevel facet arthropathy and a tiny posterior disc osteophyte complex at C6- 7 with mild to moderate left neuroforaminal stenosis. No significant central canal stenosis. Spinal cord signal normal. CSF analysis reviewed, CSF clear, colorless, positive xanthochromia, CSF WBC 0, RBC 1900, (likely traumatic tap), CSF total protein 278.6, meningoencephalitis PCR panel unremarkable. Exam (Neuro) Neurologic: Oriented to:: Person, Place and Time Memory: Short Term Intact and Remote Intact Attention: Span Intact and Concentration Intact Speech Fluency: Dysarthria (Mild) Speech Aphasia: negative Aphasia Fund of Knowledge: Current Events, Past History and Vocabulary Cranial Nerves: Normal II, III, IV, , V, VII, VIII, IX, X, XI and XII Motor Strength: negative Normal Lower Extremities or Normal Upper Extremities Motor Tone: Normal Lower Extremities and Normal Upper Extremities Muscle Bulk/Involuntary Movements: No Involuntary Movements; negative Muscle Atrophy Sensation: Light Touch Intact; negative Vibration Intact or Proprioception Intact Deep Tendon Reflexes: Rt Triceps: 1+, Lt Triceps: 1+, Rt Biceps: 1+, Lt Biceps: 1+, Rt Brachioradialis: 1+, Lt Brachioradialis: 1+, Rt Patellar: 0, Lt Patellar: 0, Rt Ankle: 0 and Lt Ankle: 0 Coding Level of Care Code 93568 SUB INP/OBS CARE 2/35MIN Diagnoses GBS (Guillain [place] syndrome) G61.0 Time Spent (min) 40 Comment Total time includes patient contact, chart review, counseling, note preparation
--- NOTE | 2024-06-01 16:52 | Billing Data ---
Date of Service June 01, 2024 Coding Level of Care Code 53810 SUB INP/OBS CARE MIN
[2024-06-01] MEDS: MAGNESIUM HYDROXIDE SUSP 30 ML UDC PO PRN (17:15)
[2024-06-01] MEDS: POLYETHYLENE (MIRALAX) 17 GM PACK PO SCH (17:15)
[2024-06-01] MEDS: ENOXAPARIN INJ 40 MG/0.4 ML SYR SQ SCH (20:19)
[2024-06-01] MEDS ORDERED: POLYETHYLENE (MIRALAX) 17 GM PACK PO SCH (21:00)
[2024-06-01] MEDS: MELATONIN 3 MG TAB PO PRN (23:33)
[2024-06-02 06:01] LABS: Basophils # (auto) 0.02 K/uL (0.00-0.20); Basophils % (auto) 0.5 %; Eosinophils # (auto) 0.02 K/uL (0.00-0.50); Eosinophils % (auto) 0.5 %; Hematocrit (blood only) 42.7 % (42.0-52.0); Hemoglobin 14.1 g/dl (14.0-18.0); Immature Granulocytes # (auto) 0.01 K/uL (0.01-0.20); Immature Granulocytes % (auto) 0.2 %; Lymphocytes # (auto) 1.33 K/uL (1.20-3.40); Lymphocytes % (auto) 30.3 %; Mean Corpuscular Hemoglobin 28.9 pg (25.0-34.0); Mean Corpuscular Volume 87.5 fL (80.0-100.0); Monocytes # (auto) 0.39 K/uL (0.11-0.59); Monocytes % (auto) 8.9 %; Neutrophils # (auto) 2.62 K/uL (1.40-6.50); Neutrophils % (auto) 59.6 %; Platelet Count 236 K/uL (130-400); RDW Coefficient of Variation 12.4 % (11.5-14.5); RDW Standard Deviation 39.9 fL (36.4-46.3); Red Blood Count 4.88 M/uL (4.70-6.10); White Blood Count 4.39 K/ul (4.8-10.8)
[2024-06-02 06:18] LABS: BUN Creatinine Ratio 17.8 (10-20); Calcium 9.3 mg/dl (8.6-10.3); Creatinine Clr Calc Pharmacy 119.8 ml/min; Est GFR (African American) 123.6 ml/min; Est GFR (Non-African American) 106.6 ml/min; Potassium 4.1 mmol/L (3.5-5.1)
--- NOTE | 2024-06-02 08:45 | Neurology Progress Note ---
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 He presents with distal weakness, in all 4 limbs, with some bifacial weakness. Despite his numbness tingling and pain, he has no obvious sensory deficits on neurologic examination. He is essentially areflexic as well. 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 Extensive MRI imaging of the brain, cervical spine, and lumbar spine showed no other significant issues. Low back pain is typical for this diagnosis and may be exacerbated some by the lumbar puncture. The headache may be part of the condition, post LP headache (any positional headache), and IVIG itself. IVIG can cause a headache problem and even a chemical meningitis as a side effect. He does not have any encephalopathy or stiff neck. Recommendations: 1. Continue IVIG for a total of 5 days (today should be day #3). 2. If not already obtained, get the serum GQ 1B antibody (to test for Mo Barillas syndrome variant of Guillain-Story). 3. EMG interconnect studies can be obtained as an outpatient (3 to 4 weeks from onset of symptoms) 4. Continue physical and Occupational Therapy for strengthening and gait training 5. Continue to monitor swallowing and breathing/respiratory function. Overall, I spent a total of 55 minutes with this case including review of records, review of MRI films, direct evaluation patient at bedside, report generation, and discussion of the case with the patient and RN at bedside and Dr. León, including differential diagnosis and treatment options. Admission and Anticipated Discharge Date Admission Date: June 01, 2024 Subjective Patient complains of bilateral frontotemporal headache about 7 out of 10 with neck pain and a pounding sensation. It is variable and can be worse sitting up than laying down. Nevertheless, it is present laying down as well. Patient continues to have tingling and dysesthesias/pain in his hands and feet, limbs, face, and back including abdomen. He has considerable low back pain which predates the spinal tap by is much as several days. The patient has had dysesthesias for at least 2 weeks but has had weakness for approximately 1 week. He cannot walk. He has some intermittent double vision without droopy eyelids or trouble swallowing. He feels his lips are numb and weak. He is on day 3 of IVIG ( 5). MRI of the brain was unremarkable MRI of the cervical spine was unremarkable except for some mild C6-7 disc bulge (no cord impingement). MRI of the lumbar spine showed multilevel degenerative changes without significant spinal stenosis. CT angiography of the head neck was unremarkable over a week ago. Spinal fluid examination from May 31 revealed 0 white cells, 1900 red cells with xanthochromia, protein of 278 and a glucose of 60. Gram stain was unremarkable and there has been no growth to date. Bio fire was for all organisms tested Today CBC and CHEM profile were largely unremarkable. Results & Data Vital Signs (Past 12 Hours) Vital Signs Temp Pulse Pulse Resp BP Pulse Ox O2 Del Method 06/02/24 07:56 70 06/02/24 07:45 36.6 C 70 18 143/97 H 96 Room Air 06/02/24 03:19 36.7 C 85 18 137/80 94 Room Air 06/01/24 22:41 36.8 C 95 H 22 125/83 96 Room Air 06/01/24 21:54 94 H Exam (Neuro) Physical Exam: He is awake and alert. Speech is somewhat choppy but not specifically dysarthria or aphasia. Mood is reasonable and affect is appropriate. Thought processes are intact and he is fully oriented. He follows commands well and is cooperative. Extraocular eye muscles are intact without nystagmus. There is no facial droop. However, he cannot hold air in his cheeks very well and may have some weak lips. Tongue is midline and has good strength bilaterally. Palate raises well. Forehead and lid strength is normal bilaterally. Neck strength is 5/5 in all directions as is sternocleidomastoid and trapezius strength. Coordination is difficult to ascertain in the upper extremities because of some perceived proximal weakness and clumsiness of the hands. There is no obvious resting, action, or postural tremor. He was very "shaky" with movement but I did not detect any bri ataxia. There were no myoclonic jerks noted. Motor strength seemed fairly close to 5/5 despite his "shakiness" proximally in the upper extremities including deltoid, biceps, and triceps. There was some mild wrist flexor and extensor weakness with significant intrinsic hand muscle and dairy equipment installer weakness (34 -/5) bilaterally. Leg strength was 4+/5 proximally and 4/5 distally particularly the toes extensor and flexors. Reflexes were absent (0/4) in the Achilles, quadriceps, brachioradialis, and triceps tendons bilaterally. The right biceps was 1/4 and the left was 0/4. Toes were neutral to plantar stimulation bilaterally. The patient seemed to feel pin and touch quite well in all 4 limbs proximally and distally as well as the face bilaterally chest and abdomen. There were no obvious sensory deficits to examination. PG Care Time/CCT Total # of Minutes Spent Total Time Spent with Patient: Total time spent is greater than 50% in coordination of care (as documented) at patient's floor/unit and/or counseling patient: Coding Level of Care Code 45269 SUB INP/OBS CARE 3/50MIN Diagnoses GBS (Guillain [place] syndrome) G61.0 Back pain M54.50 Back pain laterality: bilateral Back pain location: low back pain Chronicity: unspecified Sciatica presence: unspecified whether sciatica present Dysesthesia of multiple sites R20.8 Head pain R51.9 Headache chronicity pattern: acute headache Headache type: unspecified Intractability: not intractable Time Spent (min) 55 (2) Back pain Back pain laterality: bilateral Back pain location: low back pain Chronicity: unspecified Sciatica presence: unspecified whether sciatica present Qualified Code(s): M54.50 - Low back pain, unspecified (4) Head pain Headache chronicity pattern: acute headache Headache type: unspecified Intractability: not intractable Qualified Code(s): R51.9 - Headache, unspecified
[2024-06-02] MEDS: POLYETHYLENE (MIRALAX) 17 GM PACK PO SCH (14:03)
--- NOTE | 2024-06-02 15:47 | Medical Student Progress Note ---
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 Neuro exam revealed areflexia, muscle weakness, and dysarthria. Diagnostics: LP performed shows elevated protein consistent with GBS. Elevated protein on LP consistent with GBS MRI brain unremarkable. MRI of cervical spine showed bulge of C6 without spinal impingement, otherwise unremarkable. MRI of lumbar spine shows degeneration without significant spinal stenosis * Give IVIG 4mg/Kg for 5 days (today is day 35) * Obtain serum GQ1B antibody to test for Mo Barillas Syndrome * PT/OT to work on gain and maintain function * Continue to monitor respiratory and swallowing (2) Back pain: Plan: Presented with back pain prior to admission, appears to have been exacerbated by the LP. * Pain control with Tylenol and Oxycodone PRN Back pain laterality: bilateral Back pain location: low back pain Chronicity: unspecified Sciatica presence: unspecified whether sciatica present Qualified Code(s): M54.50 - Low back pain, unspecified (3) SLE (systemic lupus erythematosus): Plan: Chronic. On Plaquenil therapy. * Continue home Plaquenil (4) Headache: Plan: Improving. Bilateral, pounding frontotemporal headache. Suspect headache is 2/2 LP performed on 05/31, but cannot be certain of cause. Could also be associated with GBS or IVIG treatment. * Tylenol and oxycodone PRN Plan FEN/GI: clears, advance as tolerated Code status: Full DVT prophylaxis: Lovenox, held in setting of LP Isolation: none Disposition: PCU Admission and Anticipated Discharge Date Admission Date: June 01, 2024 Subjective Patient presented for paresthesias in hands and feet bilaterally as well as back pain. The numbness and tingling progressed up his trunk and has entered into his face resulting in his lips being numb. Numbness has resulted in trouble eating and causing him to bite his lip. He has also been dealing with back pain during this time which has been exacerbated by his LP. He has a new onset headache that is located in the frontotemporal region and he describes this as pounding bilaterally. He believes much of the headache is due to not sleeping last night. The headache has been improving over time. He has abdominal pain and states that he has not had a BM in 8 days. Review of Systems Review of Systems: All systems reviewed & are unremarkable except as noted in HPI & below Physical Exam Respiratory: Auscultation only done from the front. CTAB without wheezes, rales, rhonchi, Cardiovascular: Heart is RRR without murmurs, rubs, gallops Neurologic: General: Patient is awake and oriented to person place and time Speech: dysarthria noted. Troubles saying some words and often takes pauses to be able to say a word. CN:busgirl 2-12 were tested. II: PERRLA III, IV, : , EOEM intact, normal visual gaffney. V: facial sensations in tact, normal strength in masseter and temporalis VII: Able to raise eyebrows, smile, and blow cheeks out. No facial droop VIII: Normal hearing in both ears IX: tongue midline and normal palate raise XI: 4/5 strength in trapezius and sternocleidomastoid. Motor: 3/5 strength in biceps and triceps on the right and 4/5 strength in biceps and triceps on the left, 2/5 strength in commercial electrician strength bilaterally Gait not observed as patient claimed he cannot walk. Coordination: slowed rapid alternating movements, inability to perform nose- finger test due to upper extremity weakness Reflexes: areflexia in triceps, brachioradialis, and quadriceps bilaterally. Results & Data Vital Signs (Past 12 Hours) Vital Signs Temp Pulse Pulse Resp BP Pulse Ox O2 Del Method 06/02/24 03:19 36.7 C 85 18 137/80 94 Room Air 06/01/24 22:41 36.8 C 95 H 22 125/83 96 Room Air 06/01/24 21:54 94 H 06/01/24 19:39 36.7 C 88 18 129/82 95 Room Air Diagnostic Findings MRI of brain was unremarkable. MRI of cervical spine showed bulge of C6 without spinal impingement, otherwise unremarkable MRI of lumbar spine shows degeneration without significant spinal stenosis Lumbar Puncture showed high protein Resident Activity Tracking Resident Involvement: Resident Care Provided Care Provided: Adult [facility] Medicine Resident Supervision Co-Signing Physician Notes I was personally present during medical student and patient encounter and independently interviewed and examined the patient and verified the coles history and physical, reviewed labs and image studies, discussed the case with Juan Merida, and agree with the above mentioned findings and care plan. Patient is a 53-year-old male who was admitted due to progressive p aresthesias/weakness in bilateral distal upper and lower extremities. After lumbar puncture and clinical diagnosis, patient was diagnosed with Guillain- Story syndrome. Patient is currently on day 3 of 5 of IVIG, and he thinks that he has some weakness still in bilateral lower extremities and upper extremities, he does feel some improvement compared to the time that he had gone here. Expresses frustration with his 1 week difficulty making much and due to having to hold onto 1 side of his mouth so that food does not escape on that side due to facial weakness. Abdominal pain due to constipation lasting 8 days. No other concerns. Physical exam remarkable for mild abdominal tenderness to palpation, no peritoneal signs such as rebound tenderness or guarding; vascular exam with regular rate and rhythm, no rubs murmurs or gallops; lungs clear to auscultation bilaterally, normal respiratory effort, no respiratory distress; bilateral lower extremities without swelling or calf tenderness bilaterally; MSK exam with 3/5 strength in upper and lower extremities with decreased sensation in distal legs and upper extremities, diminished DTR; neuro exam and patient was AAOx3, dysarthria, MINERVA, EOM intact Will continue IVIG treatment for GBS x 5 days. Weakness and sensorial changes noted, however airway has remained patent the patient has remained hemodynamically stable. Neurology consulted, appreciate recommendations. Given patient's good results, will space NIF from every 4 hours to every 6 hours. Attending attestation Pt seen and examined in concert with Dr. Crawford, [place]. Dr. Merida. In agreement with the documented findings as noted in the resident documentation with any exceptions or additions as noted here. Reports gradually improving bilateral frontal headache which did worsen with standing/stretching but has overall improved without recurrent neurologic symptoms. Subjectively improved weakness but still considerable saira in the b/l LE. On examination, S1/S2 nl RRR no MCG. CTAB. Abd NT/ND BS+ve. Neurologic examination reviewed as above. GBS - continue IVIG for full treatment. Neurology consultation appreciated. Continue working with PT/OT. Else see resident documentation as noted.
[2024-06-03 06:00] LABS: Hematocrit (blood only) 42.5 % (42.0-52.0); Hemoglobin 14.1 g/dl (14.0-18.0); Mean Corpuscular Hgb Conc 33.2 g/dL (32.0-36.0); Mean Corpuscular Volume 87.3 fL (80.0-100.0); Mean Platelet Volume 10.3 fL (9.4-12.4); Platelet Count 229 K/uL (130-400); RDW Coefficient of Variation 12.5 % (11.5-14.5); RDW Standard Deviation 39.8 fL (36.4-46.3); Red Blood Count 4.87 M/uL (4.70-6.10); White Blood Count 4.42 K/ul (4.8-10.8)
[2024-06-03 06:17] LABS: BUN Creatinine Ratio 19.7 (10-20); Calcium 9.3 mg/dl (8.6-10.3); Creatinine Clr Calc Pharmacy 132.5 ml/min; Est GFR (African American) 128.8 ml/min; Est GFR (Non-African American) 111.2 ml/min; Potassium 4.1 mmol/L (3.5-5.1)
[2024-06-03] MEDS: ACETAMINOPHEN 500 MG TAB PO PRN (07:56)
[2024-06-03] MEDS: LACTULOSE SYRUP 20 GM/30 ML UDC PO SCH (09:13)
--- NOTE | 2024-06-03 11:31 | Medical Student Progress Note ---
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 LP: Elevated protein consistent with GBS. MRI brain unremarkable. MRI of cervical spine showed bulge of C6 without spinal impingement, otherwise unremarkable. MRI of lumbar spine shows degeneration without significant spinal stenosis * Give IVIG 4mg/Kg for 5 days (today is day 4/5) * GQ1B antibody (to screen for Mo Barillas Syndrome variant) pending * Continue PT/OT to work on gain and maintain function appreciate recommendation * Continue to monitor respiratory and swallowing (2) Constipation: Plan: 05/13 abdominal pain, suspect to constipation. No BM in 9 days. Passing gas today for the first time. * Continue polyethylene glycol 34gm and lactulose 10gm * Should constipation persist, consider milk and molasses enema (3) Back pain: Plan: Presented with back pain prior to admission, likely post LP headache. No signs of migraine, cluster headache. * Continue pain control with Tylenol and Oxycodone PRN Back pain laterality: bilateral Back pain location: low back pain Chronicity: unspecified Sciatica presence: unspecified whether sciatica present Qualified Code(s): M54.50 - Low back pain, unspecified (4) SLE (systemic lupus erythematosus): Plan: Chronic. On Plaquenil therapy. * Continue home Plaquenil (5) Headache: Plan: Improving. Bilateral, pounding frontotemporal headache. continuing to improve fr om yesterday. Suspect headache is 2/2 LP performed on 05/31, but cannot be certain of cause. Could also be associated with GBS or IVIG treatment. * Continue Tylenol and oxycodone PRN as above Plan FEN/GI: clears, advance as tolerated Code status: Full DVT prophylaxis: Lovenox, held in setting of LP Isolation: none Disposition: PCU Admission and Anticipated Discharge Date Admission Date: June 01, 2024 Supervising Attestation Attending attestation Pt seen and examined in concert with Yvette Westfall St. Dr. Merida. In agreement with the documented findings as noted in the resident documentation with any exceptions or additions as noted here. Overall improving symptoms on day 4/5 of IVIG therapy. Diminished facial paresthesias, tongue biting, headache and back pain with improved activity tolerance with PT. On examination, S1/S2 nl RRR no MCG. CTAB. Abd NT/ND BS+ve. CNII-XII grossly intact, dysarthria has improved in marcus and wordfinding. MSK str has somewhat improved in the UE bilaterally, though still limited. GBS - neurology consult appreciated - completing course of IVIG tomorrow. Continue to work with PT/OT. GQ1B to be ordered today. Constipation with abdominal pain - continue to escalate lactulose, continue miralax. Encourage enema if patient willing. Back pain and headache s/p LP - also gradually improving, no longer acutely worsening with position changes. Continue pain control w/ oxycodone and APAP SLE on plaquenil Case management working with acute rehab facility ([facility]) for post-admission care. Else see student/resident documentation as noted. Subjective Patients main concern at this time is his abdominal pain, which he rates at 9/10. No BMs in 9 days, but has begun to pass gas today. Headaches improved since yesterday although still reports slight headache in the frontotemporal region bilaterally. He continues to report back pain at this time. He thinks that his speech has improved from yesterday but is still frustrated that he cannot spit out words all of the time. Review of Systems Constitutional: Feeling fatigued due to lack of sleep. Denies fever Respiratory: Denies SOB, cough Cardiovascular: Additional Comments: Denies chest pain Gastrointestinal: Having 9/10 abdominal pain and has not had a BM in 9 days Physical Exam Respiratory: CTAB without wheezes, rales, rhonchi Cardiovascular: Heart RRR without murmurs, rubs, gallops Gastrointestinal (Abdomen): Abdomen is very tender to palpation in all four quadrants. Neurologic: Dysarthria improved vs. yesterday Sensation to touch present and equal in all four extremities Strength 3/5 RUE and 4/5 in LUE, 2/5 graduate assistant athletic trainer strength bilaterally, 4/5 strength with dorsiflexion and plantarflexion Areflexia in triceps, biceps, brachioradialis bilaterally Unable to observe gait Cranial nerves II-XII intact bilaterally Results & Data Vital Signs (Past 12 Hours) Vital Signs Temp Pulse Pulse Resp BP Pulse Ox O2 Del Method 06/03/24 03:29 36.6 C 76 18 128/87 97 Room Air 06/02/24 22:51 36.6 C 91 H 20 131/85 96 Room Air 06/02/24 21:56 91 H Resident Activity Tracking Resident Involvement: Resident Care Provided Care Provided: Adult Hospital Medicine Resident Supervision Co-Signing Physician Notes Resident Attestation I was personally present during medical student and patient encounter and independently interviewed and examined the patient and verified the coles history and physical, reviewed labs and image studies, discussed the case with Juan Merida, and agree with the above mentioned findings and care plan. Patient still endorsing headache, back pain, and abdominal pain. Has persistent weakness in b/l LE and UE that is stable compared to yesterday but does not perceive a lot of improvement. Has not yet had a bowel movement. If still constipated, will consider adding pro-motility agent and/or fleet enema today. Weakness and dysarthria persistent but not worsened. Today is day 4/5 of IVIG treatment for GBS. Neurology following. Has scheduled Tylenol, Oxycodone for pain control, but suspect lack of mobility and constant pressure over back may be one factor contributing to his pain. Advised to try and lay on his side when able and encouraged continued PT. Otherwise as above.
[2024-06-04 05:25] LABS: BUN Creatinine Ratio 16.4 (10-20); Calcium 9.1 mg/dl (8.6-10.3); Creatinine Clr Calc Pharmacy 130.5 ml/min; Est GFR (Non-African American) 110.5 ml/min; Hematocrit (blood only) 41.2 % (42.0-52.0); Hemoglobin 14.2 g/dl (14.0-18.0); Mean Corpuscular Hemoglobin 29.6 pg (25.0-34.0); Mean Corpuscular Hgb Conc 34.5 g/dL (32.0-36.0); Mean Platelet Volume 10.2 fL (9.4-12.4); Platelet Count 243 K/uL (130-400); Potassium 3.8 mmol/L (3.5-5.1); RDW Coefficient of Variation 12.3 % (11.5-14.5); RDW Standard Deviation 39.5 fL (36.4-46.3); Red Blood Count 4.79 M/uL (4.70-6.10); White Blood Count 4.84 K/ul (4.8-10.8)
--- NOTE | 2024-06-04 10:16 | Neurology Progress Note ---
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 He presents with distal weakness, in all 4 limbs, with some bifacial weakness. Despite his numbness tingling and pain, he has no obvious sensory deficits on neurologic examination. He is essentially areflexic as well. 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 Extensive MRI imaging of the brain, cervical spine, and lumbar spine showed no other significant issues. Low back pain is typical for this diagnosis and may be exacerbated some by the lumbar puncture. The headache may be part of the condition, post LP headache (any positional headache), and IVIG itself. IVIG can cause a headache problem and even a chemical meningitis as a side effect. He does not have any encephalopathy or stiff neck. Recommendations: 1. Continue IVIG for a total of 5 days (today should be day #5). 2. If not already obtained, get the serum GQ1b antibody (to test for Mo Barillas syndrome variant of Guillain-Story). 3. EMG and nerve conduction studies can be obtained as an outpatient (3 to 4 weeks from onset of symptoms). Follow-up as an outpatient with Dr. Hansen is reasonable as well. 4. Continue physical and Occupational Therapy for strengthening and gait training 5. Continue to monitor swallowing and breathing/respiratory function. 6. Once IVIG is concluded depending on his fluid status treating his pain and headaches with ketorolac would be reasonable. Overall, I spent a total of 50 minutes with this case including review of records, review of MRI films, direct evaluation patient at bedside, report generation, and discussion of the case with the patient and RN at bedside and Dr Jl León, including differential diagnosis and treatment options. Admission and Anticipated Discharge Date Admission Date: June 01, 2024 Subjective Patient continues to complain of tingling and dysesthesias of his arms and legs bilaterally, left greater than right side including his face. Generally these dysesthesias can be anywhere touched. Touching can bring them out more sometimes. These wax and wane according to the nurse. Earlier this morning he was not having dysesthesias in his arms prior to us coming into the room and then he is having them after we came to the. He feels that the aches and pains and dysesthesias of his limbs are worse the last 2 days than they were. His strength is also worse he feels. He continues to get double vision in any direction. He can have blurry vision as well. He has no trouble swallowing The patient continues to have a headache bifrontally of a significant nature as before. CBC and CHEM profile recently were unremarkable. Blood pressure is 186/99. Results & Data Vital Signs (Past 12 Hours) Vital Signs Temp Pulse Pulse Resp BP Pulse Ox O2 Del Method 06/04/24 07:58 36.6 C 90 19 186/99 H 97 Room Air 06/04/24 07:00 80 06/04/24 03:31 36.6 C 87 19 149/90 H 96 Room Air 06/03/24 22:58 36.6 C 104 H 20 132/96 96 Room Air Exam (Neuro) Physical Exam: He is awake and alert. Speech is without obvious aphasia or dysarthria. Mood is reasonable and affect is appropriate. He is upset because of all his physical symptoms. Extraocular eye muscles seem intact without disconjugate gaze. Pupils are 4 mm bilaterally and reactive to light. There is no facial droop. Lips seem a l ittle bit weak but he could hold area and better than he could 2 days ago. Tongue is midline. Neck hurts with movement but seems to have a good range of motion. She has 4/5 strength proximally in all 4 limbs and 34 -/5 strength distally in the hands and feet. Reflexes are absent in all 4 limbs and toes are neutral to plantar stimulation bilaterally. PG Care Time/CCT Total # of Minutes Spent Total Time Spent with Patient: Total time spent is greater than 50% in coordination of care (as documented) at patient's floor/unit and/or counseling patient: Coding Level of Care Code 17694 SUB INP/OBS CARE 3/50MIN Diagnoses GBS (Guillain [place] syndrome) G61.0 Back pain M54.50 Back pain laterality: bilateral Back pain location: low back pain Chronicity: unspecified Sciatica presence: unspecified whether sciatica present Dysesthesia of multiple sites R20.8 Head pain R51.9 Headache chronicity pattern: acute headache Headache type: unspecified Intractability: not intractable Time Spent (min) 50 (2) Back pain Back pain laterality: bilateral Back pain location: low back pain Chronicity: unspecified Sciatica presence: unspecified whether sciatica present Qualified Code(s): M54.50 - Low back pain, unspecified (4) Head pain Headache chronicity pattern: acute headache Headache type: unspecified Intractability: not intractable Qualified Code(s): R51.9 - Headache, unspecified
[2024-06-04] MEDS ORDERED: KETOROLAC TROMETHAMINE 10 MG TABLET PO PRN (10:41)
[2024-06-04] MEDS ORDERED: POLYETHYLENE (MIRALAX) 17 GM PACK PO PRN (10:43)
--- NOTE | 2024-06-04 11:49 | Medical Student Progress Note ---
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 Neuro exam revealed areflexia, muscle weakness, and dysarthria. Diagnostics: LP performed shows elevated protein consistent with GBS. Elevated protein on LP consistent with GBS MRI brain unremarkable. MRI of cervical spine showed bulge of C6 without spinal impingement, otherwise unremarkable. MRI of lumbar spine shows degeneration without significant spinal stenosis * Give IVIG 4mg/Kg for 5 days (today is day 01/05) * Obtain serum GQ1B antibody to test for Mo Barillas Syndrome * PT/OT to work on gain and maintain function. CM working on possible discharge to [facility]. * Continue to monitor respiratory and swallowing (2) Back pain: Plan: Presented with back pain prior to admission, appears to have been exacerbated by the LP. No symptom improvement throughout stay. Has been using Oxycodone PRN every 6 hours. * Pain control with Oxycodone PRN * Add Tylenol 1000mg Q8 scheduled Back pain laterality: bilateral Back pain location: low back pain Chronicity: unspecified Sciatica presence: unspecified whether sciatica present Qualified Code(s): M54.50 - Low back pain, unspecified (3) Constipation: Plan: Abdominal pain is improved after having three BM since yesterday but more mild sxs persist. * Discontinue Miralax and lactulose * Use Miralax PRN (4) SLE (systemic lupus erythematosus): Plan: Chronic. On Plaquenil therapy. * Continue home Plaquenil (5) Headache: Plan: Improving, almost resolved: Bilateral, pounding frontotemporal headache. continuing to improve from yesterday. Suspect headache is 2/2 LP performed on 05/31, but cannot be certain of cause. Co uld also be associated with GBS or IVIG treatment. * Tylenol and oxycodone PRN Plan FEN/GI: clears, advance as tolerated Code status: Full DVT prophylaxis: Lovenox, held in setting of LP Isolation: none Disposition: PCU Admission and Anticipated Discharge Date Admission Date: June 01, 2024 Supervising Attestation Attending attestation Pt seen and examined in concert with St. Dr. Fuad Westfall. In agreement with the documented findings as noted in the resident documentation with any exceptions or additions as noted here. Reports worsened headache and back pain, though improves with PO medication. On examination, S1/S2 nl RRR no MCG. CTAB. Abd NT/ND BS+ve. Defers neuro exam at time of evaluation 2/2 headache. GBS - neurology consult appreciated - completed day 01/05 IVIG today. Continue to work with PT/OT. GQ1B pending. Constipation with abdominal pain - 3 good BM today. Continue lactulose, miralax. Continue to monitor. Back pain and headache s/p LP in the setting of IVIG use - controlled on present pain medication, though waxing and waning without apparent trigger or responsiveness to activity. Continue pain control w/ oxycodone and APAP SLE on plaquenil Case management working with acute rehab facility ([facility]) for post-admission care. Subjective Patient is complaining of severe back pain that has shown no improvement th roughout his stay. He states it is still his lower back that is bothering him. He also was seen by wound care for a compression sore on his sacral region but he states that the pain he is feeling is separate from this wound. He had 3 BM since yesterday which has resolved his abdominal pain. Additionally, his headache has improved and he is having minimal headaches at this point. Review of Systems Review of Systems: All systems reviewed & are unremarkable except as noted in HPI & below Physical Exam Respiratory: Auscultated from front: CTAB without wheezes, rales, rhonchi Cardiovascular: RRR without murmurs, rubs, gallops Neurologic: CN II-XII intact bilaterally. Strength: LUE 4/5, RUE 3/5, supervisor multifocal lens strength 2/5 bilaterally, plantar and dorsiflexion 5/5 bilaterally Normal sensation to touch in all extremities. Gait not observed. Results & Data Vital Signs (Past 12 Hours) Vital Signs Temp Pulse Pulse Resp BP Pulse Ox O2 Del Method 06/04/24 07:58 36.6 C 90 19 186/99 H 97 Room Air 06/04/24 07:00 80 06/04/24 03:31 36.6 C 87 19 149/90 H 96 Room Air Resident Activity Tracking Resident Involvement: Resident Care Provided Care Provided: Adult [facility] Medicine Resident Supervision Co-Signing Physician Notes Resident Attestation I was personally present during medical student and patient encounter and independently interviewed and examined the patient and verified the coles history and physical, reviewed labs and image studies, discussed the case with Juan Merida, and agree with the above mentioned findings and care plan. Patient still endorsing headache, back pain, and abdominal pain. Abdominal tenderness has decreased after having 3 large, non-bloody bm yesterday and last night. Still endorses some tenderness but much more mild. Will stop lactulose and magnesium, and will change miralax to prn. Headache is still persistent and describes it as pounding and band-like. Suspect lack of sleep and expressed frustration/stress from the situation may be causing possible tension headaches based on patient's description. Has persistent weakness in b/l LE and UE that is stable compared to yesterday but does not perceive a lot of improvement. Weakness and dysarthria persistent but not worsened. Today is day 5/5 of IVIG treatment for GBS. Neurology following. Still very weak. Will likely need rehab after discharge. CM following and trying for [facility]. Has scheduled Tylenol, Oxycodone for pain control, but suspect lack of mobility and constant pressure over back may be one factor contributing to his pain. Advised to try and lay on his side when able and encouraged continued PT. Otherwise as above.
[2024-06-04] MEDS: ACETAMINOPHEN 500 MG TAB PO SCH (12:11)
[2024-06-04] MEDS: KETOROLAC TROMETHAMINE 10 MG TABLET PO PRN (23:37)
[2024-06-05] MEDS: LORazepam 2 MG/1 ML VIAL IV STA (00:54)
[2024-06-05 06:18] LABS: Hematocrit (blood only) 39.9 % (42.0-52.0); Hemoglobin 13.5 g/dl (14.0-18.0); Mean Corpuscular Hgb Conc 33.8 g/dL (32.0-36.0); Mean Corpuscular Volume 85.8 fL (80.0-100.0); Mean Platelet Volume 10.1 fL (9.4-12.4); Platelet Count 240 K/uL (130-400); RDW Coefficient of Variation 12.4 % (11.5-14.5); RDW Standard Deviation 38.9 fL (36.4-46.3); Red Blood Count 4.65 M/uL (4.70-6.10); White Blood Count 3.88 K/ul (4.8-10.8)
[2024-06-05 06:33] LABS: BUN Creatinine Ratio 17.9 (10-20); Calcium 9.3 mg/dl (8.6-10.3); Creatinine Clr Calc Pharmacy 156.2 ml/min; Potassium 3.9 mmol/L (3.5-5.1)
--- NOTE | 2024-06-05 12:39 | Medical Student Progress Note ---
Date of Service June 05, 2024 Assessment & Plan (1) Back pain: Plan: Presented with back pain prior to admission, appears to have been exacerbated by the LP. No symptom improvement throughout stay. Very frustrated with continued pain. * Increase Gabapentin to 200mg TID * Tylenol 1000mg Q8 scheduled * Mobic 10mg qam * Oxycodone 5mg discont. Back pain laterality: bilateral Back pain location: low back pain Chronicity: unspecified Sciatica presence: unspecified whether sciatica present Qualified Code(s): M54.50 - Low back pain, unspecified (2) GBS (Guillain [place] syndrome): Plan: Patient presents with ascending paralysis starting in the hands and feet bilaterally which has progressed through the trunk and into the lips/mouth region. Neuro exam revealed areflexia, muscle weakness, and dysarthria. Diagnostics: LP performed shows elevated protein consistent with GBS. Elevated protein on LP consistent with GBS MRI brain unremarkable. MRI of cervical spine showed bulge of C6 without spinal impingement, otherwise unremarkable. MRI of lumbar spine shows degeneration without significant spinal stenosis * IVIG 4mg/Kg treatment completed (yesterday was day 01/05) * Serum GQ1B antibody to test for Mo Barillas Syndrome is pending * PT/OT to work on gain and maintain function. CM working on possible discharge to [facility]. * Continue to monitor respiratory and swallowing (3) Constipation: Plan: Abdominal pain is improved after having three BM but more mild sxs persist. * Discontinue Miralax and lactulose * Use Miralax PRN (4) SLE (systemic lupus erythematosus): Plan: Chronic. On Plaquenil therapy. * Continue home Plaquenil (5) Headache: Plan: Improving, almost resolved: Bilateral, pounding frontotemporal headache. Pain has been improving over last couple days. Frustration of his situation appears to be leading to headache. Suspect headache is 2/2 LP performed on 05/31, but cannot be certain of cause. Could also be associated with GBS or IVIG treatment. * Tylenol PRN Plan FEN/GI: clears, advance as tolerated Code status: Full DVT prophylaxis: Lovenox, held in setting of LP Isolation: none Disposition: PCU Admission and Anticipated Discharge Date Admission Date: June 01, 2024 Supervising Attestation Attending attestation Pt seen and examined in concert with St. Dr. Fuad Westfall. In agreement with the documented findings as noted in the resident documentation with any exceptions or additions as noted here. Reporting gradually improving headache and back pain following discontinuation of IVIG and initiation of meloxicam. Ongoing paresthesias of the face, hands and feet which are stable and nonascending. On examination, S1/S2 nl RRR no MCG. CTAB. Abd NT/ND BS+ve. Defers full neuro evaluation but distal extremity weakness stable on oppositional testing. Back pain, headache - improving - continue APAP, added meloxicam, d/c oxycodone and consider re-addition if needed with breakthrough GBS with paresthesias - neurology consult appreciated, PT/OT - completed IVIG. Reviewed w/ neuro, can escalate gabapentin to 200mg TID and monitor for response. Constipation - improving with current regimen, so can discontinue lactulose and add PRN miralax Else see resident/student documentation as noted. Subjective Patient states that he is still experiencing severe 8/10 back pain that has shown no improvement throughout his stay. He is getting frustrated that he has not seen improvement in his pain and is still experiencing numbness and tingling in his extremities which extends to his face. He still has a minor headache, but this is much improved from earlier in the week. He states he still has mild abdominal pain but was able to have one BM today. Review of Systems Review of Systems: All systems reviewed & are unremarkable except as noted in HPI & below Physical Exam Respiratory: Auscultated from front: CTAB without wheezes, rales, ronchi Cardiovascular: RRR without murmurs, rubs, gallops, Neurologic: Dysarthria improving. CN II-XII intact bilaterally Normal sensation to touch in upper and lower extremities bilaterally Strength: LUE is 4/5, RUE 3/5, carpenter rough 2/5 Gait not observed Results & Data Vital Signs (Past 12 Hours) Vital Signs Temp Pulse Pulse Resp BP Pulse Ox O2 Del Method 06/05/24 07:32 75 06/05/24 03:36 36.7 C 81 18 149/88 H 94 Room Air 06/04/24 21:50 90 06/04/24 21:49 36.7 C 79 18 143/91 H 97 Room Air Resident Activity Tracking Resident Involvement: Resident Care Provided Care Provided: Adult [facility] Medicine Resident Supervision Co-Signing Physician Notes Resident Attestation I was personally present during medical student and patient encounter and independently interviewed and examined the patient and verified the coles history and physical, reviewed labs and image studies, discussed the case with Juan Merida, and agree with the above mentioned findings and care plan. Patient still endorsing headache, back pain, and abdominal pain. Abdominal tenderness still present but more mild. Still having bm that are non bloody. Continue Miralax prn. Headache is still persistent and describes it as pounding and band-like. Suspect lack of sleep and expressed frustration/stress from the situation may be causing possible tension headaches based on patient's description. Also endorsing persistent lower back pain which could be related to GBS, chronic pain, and recent aggravation with LP. Will continue scheduled Tylenol 1000mg q8h, dc Toradol and order Mobic 7.g mg qam, increase Gabapentin 200 mg TID, and will dc Oxycodone due to abdominal pain that was made worse with constipation. Continue PT while admitted. Has persistent weakness in b/l LE and UE that is stable compared to yesterday but does not perceive a lot of improvement. Weakness and dysarthria persistent but not worsened. Completed IVIG treatment for GBS. CM following and trying for [facility]. [id number] call requested and to be done today as part of coordination of rehab after discharge. Otherwise as above.
[2024-06-05] MEDS: MELOXICAM 7.5 MG TAB PO SCH (13:37)
[2024-06-05] MEDS ORDERED: GABAPENTIN 300 MG CAP PO SCH (14:00)
[2024-06-05] MEDS: GABAPENTIN 100 MG CAP PO SCH (15:00)
[2024-06-06] MEDS: HYDROmorphone INJ 0.5 MG/0.5 ML SYR IV STA (03:02)
[2024-06-06 06:15] LABS: Hematocrit (blood only) 40.9 % (42.0-52.0); Hemoglobin 13.6 g/dl (14.0-18.0); Mean Corpuscular Hemoglobin 28.9 pg (25.0-34.0); Mean Corpuscular Hgb Conc 33.3 g/dL (32.0-36.0); Mean Corpuscular Volume 86.8 fL (80.0-100.0); Mean Platelet Volume 10.2 fL (9.4-12.4); Platelet Count 227 K/uL (130-400); RDW Coefficient of Variation 12.6 % (11.5-14.5); Red Blood Count 4.71 M/uL (4.70-6.10); White Blood Count 3.89 K/ul (4.8-10.8)
[2024-06-06 06:42] LABS: BUN Creatinine Ratio 23.3 (10-20); Calcium 9.3 mg/dl (8.6-10.3); Creatinine Clr Calc Pharmacy 145.8 ml/min; Potassium 4.1 mmol/L (3.5-5.1)
[2024-06-06] MEDS: PANTOprazole 40 MG TAB PO SCH (08:36)
--- NOTE | 2024-06-06 09:04 | Neurology Progress Note ---
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 He presents with distal weakness, in all 4 limbs, with some bifacial weakness. Despite his numbness tingling and pain, he has no obvious sensory deficits on neurologic examination. He is essentially areflexic as well. 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 Extensive MRI imaging of the brain, cervical spine, and lumbar spine showed no other significant issues. Low back pain is typical for this diagnosis and may be exacerbated some by the lumbar puncture. Patient's headaches have essentially resolved today. Guillain-Story syndrome itself may lead to headaches but IVIG frequently gives headaches. He finished IVIG 2 days ago. Clinically he is improving some slowly, but has dysesthesias and weakness . Recommendations: 1. Consider increasing gabapentin to at least 300 mg 3 times a day (or, if he is not sleeping well, try 300 in the morning, 300 in the afternoon, and 600 in the evening).. 2. Serum GQ1b antibody is pending, however he clinically does not seem like the Mo Barillas variant of GBS 3. EMG and nerve conduction studies can be obtained as an outpatient (3 to 4 weeks from onset of symptoms). 4. Continue physical and Occupational Therapy for strengthening and gait training. He would be an excellent rehabilitation hospital candidate. 5. Follow-up as an outpatient with Dr. Hansen is reasonable as well. 6. Consider increasing meloxicam to 15 mg once in the morning Overall, I spent a total of 50 minutes with this case including review of records, direct evaluation patient at bedside, report generation, and discussion of the case with the patient at bedside and Dr. Angelo, including differential diagnosis and treatment options. Admission and Anticipated Discharge Date Admission Date: June 01, 2024 Subjective Patient has no headache this morning. He continues to have low back and neck pain and dysesthesias and tingling in his arms and legs. Overall, he has had some help with low-dose gabapentin. Blood pressure is 132/88. CBC and CHEM profile are unremarkable. The patient was also initiated on meloxicam 7.5 g daily Results & Data Vital Signs (Past 12 Hours) Vital Signs Temp Pulse Pulse Resp BP BP Pulse Ox 06/06/24 08:14 85 06/06/24 07:55 36.5 C 95 H 20 132/88 95 06/06/24 02:55 36.6 C 83 20 132/88 94 06/05/24 22:06 36.9 C 117 H 18 119/89 94 06/05/24 21:47 122 H O2 Del Method 06/06/24 08:14 06/06/24 07:55 Room Air 06/06/24 02:55 Room Air 06/05/24 22:06 Room Air 06/05/24 21:47 Exam (Neuro) Physical Exam: He is awake and alert. He is Colmer today than at other times we have seen him. He is visibly less anxious. Speech is without aphasia or dysarthria. Thought processes are reasonable to conversation Extraocular eye muscles are intact without nystagmus. There is no facial droop and tongue is midline. He has 4/5 strength in the limbs with clumsiness in the hands as before. He has no abnormal involuntary movements. PG Care Time/CCT Total # of Minutes Spent Total Time Spent with Patient: Total time spent is greater than 50% in coordination of care (as documented) at patient's floor/unit and/or counseling patient: Coding Level of Care Code 13548 SUB INP/OBS CARE 3/50MIN Diagnoses GBS (Guillain [place] syndrome) G61.0 Back pain M54.50 Back pain laterality: bilateral Back pain location: low back pain Chronicity: unspecified Sciatica presence: unspecified whether sciatica present Dysesthesia of multiple sites R20.8 Head pain R51.9 Headache chronicity pattern: acute headache Headache type: unspecified Intractability: not intractable Time Spent (min) 50 (2) Back pain Back pain laterality: bilateral Back pain location: low back pain Chronicity: unspecified Sciatica presence: unspecified whether sciatica present Qualified Code(s): M54.50 - Low back pain, unspecified (4) Head pain Headache chronicity pattern: acute headache Headache type: unspecified Intractability: not intractable Qualified Code(s): R51.9 - Headache, unspecified
[2024-06-06] MEDS: GABAPENTIN 300 MG CAP PO SCH (13:42)
--- NOTE | 2024-06-06 15:54 | Medical Student Progress Note ---
Date of Service June 06, 2024 Assessment & Plan (1) Back pain: Plan: Presented with back pain prior to admission, appears to have been exacerbated by the LP. No symptom improvement throughout stay. Very frustrated with continued pain. * Increase Gabapentin to 300mg TID, with option for 600mg at night * Tylenol 1000mg Q8 scheduled * Mobic 10mg qam * Oxycodone 5mg discont. 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 Neuro exam revealed areflexia, muscle weakness, and dysarthria. He has remained frustrated by lack of improvement but is starting to see some progress. Counseled to remain optimistic and continue to seek little improvements each day. I think this has improved his mood and outlook. Diagnostics: LP performed shows elevated protein consistent with GBS. Elevated protein on LP consistent with GBS MRI brain unremarkable. MRI of cervical spine showed bulge of C6 without spinal impingement, otherwise unremarkable. MRI of lumbar spine shows degeneration without significant spinal stenosis * IVIG 4mg/Kg treatment completed 2 days ago * Serum GQ1B antibody to test for Mo Barillas Syndrome is pending * PT/OT to work on gain and maintain function. CM working on possible discharge to [facility]. * Continue to monitor respiratory and swallowing (3) Constipation: Plan: Abdominal pain is improved. Still having mild discomfort at times. Had 1 nonbloody BM yesterday. * Discontinue Miralax and lactulose * Use Miralax PRN (4) SLE (systemic lupus erythematosus): Plan: Chronic. On Plaquenil therapy. * Continue home Plaquenil (5) Headache: Plan: Improving, almost resolved: Pain has been improving over last couple days. Very mild to no pain at this time. Frustration of his situation appears to be leading to headache when he gets worked up. Suspect headache is 2/2 LP performed on 05/31, but cannot be certain of cause. Could also be associated with GBS or IVIG treatment. * Tylenol PRN Plan FEN/GI: clears, advance as tolerated Code status: Full DVT prophylaxis: Lovenox, held in setting of LP Isolation: none Disposition: PCU Admission and Anticipated Discharge Date Admission Date: June 01, 2024 Supervising Attestation I also saw the patient with the resident physician and medical student. I agree with the impression and plan as outlined in their documentation above. I also discussed the case with the neurology sr technical sales consultant. Increase gabapentin to 300 300 600. This may also give him some help with his insomnia. Increase meloxicam to 15 mg daily. Continue inpatient physical and occupational therapy. He has been accepted at [facility], although no bed available at present. Subjective Patient's main concern is still has 8/10 back pain which has seen little improvement throughout his stay. He is still experiencing numbness and tingling throughout all four extremities and face/neck. He feels that his speech has been improving a little each day. His headache is mostly gone at this time. Abdominal pain has mostly resolved as well and he had a BM yesterday. Review of Systems Review of Systems: All systems reviewed & are unremarkable except as noted in HPI & below Physical Exam Constitutional: Patient appears to have slight improvement and his mood has improved since yesterday, but is still frustrated Respiratory: CTAB without wheezes, rales, rhonchi Cardiovascular: RRR without murmurs, rubs, gallops Neurologic: CN II-XII grossly intact Normal sensation to touch in all four extremities Strength: LUE 4/5, RUE 3/5, frame table operator strength 2/5 Gait not observed. Results & Data Vital Signs (Past 12 Hours) Vital Signs Temp Pulse Pulse Resp BP BP Pulse Ox 06/06/24 11:29 36.4 C L 104 H 20 129/89 93 06/06/24 09:12 06/06/24 08:14 85 06/06/24 07:55 36.5 C 95 H 20 132/88 95 06/06/24 02:55 36.6 C 83 20 132/88 94 O2 Del Method 06/06/24 11:29 Room Air 06/06/24 09:12 Room Air 06/06/24 08:14 06/06/24 07:55 Room Air 06/06/24 02:55 Room Air Resident Supervision Co-Signing Physician Notes Resident Attestation I was personally present during medical student and patient encounter and independently interviewed and examined the patient and verified the coles history and physical, reviewed labs and image studies, discussed the case with Juan Merida, and agree with the above mentioned findings and care plan. Patient still endorsing headache, back pain, and abdominal pain. Abdominal tenderness still present but more mild. Still having bm that are non bloody. Continue Miralax prn. Endorsing persistent lower back pain which could be related to GBS, chronic pain, and recent aggravation with LP. Will continue scheduled Tylenol 1000mg q8h, increase Meloxicam 15 mg qam, increase Gabapentin 300 mg in morning and afternoon and Gabapentin 600 mg qhs. Continue PT while admitted. Has persistent weakness in b/l LE and UE that is stable compared to yesterday Weakness and dysarthria persistent but not worsened. Completed IVIG treatment for GBS. CM following and trying for [facility]. Otherwise as above. Resident Activity Tracking Resident Involvement: Resident Care Provided Care Provided: Adult Hospital Medicine
[2024-06-06] MEDS: GABAPENTIN 600 MG TAB PO SCH (20:11)
[2024-06-07] MEDS ORDERED: MELATONIN 3 MG TAB PO PRN (02:43)
[2024-06-07] MEDS: HYDROmorphone INJ 0.5 MG/0.5 ML SYR IV STA (03:20)
[2024-06-07] MEDS: MELOXICAM 7.5 MG TAB PO SCH (07:58)
[2024-06-07] MEDS: GABAPENTIN 300 MG CAP PO SCH ×2 (07:58→15:53)
[2024-06-07] MEDS: oxyCODONE HCL IR 5 MG TAB (IMMEDIATE RELEASE) PO PRN (09:23)
[2024-06-07] MEDS: POLYETHYLENE (MIRALAX) 17 GM PACK PO SCH (09:23)
--- NOTE | 2024-06-07 10:51 | Hospitalist Progress Note ---
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 Neuro exam revealed areflexia, muscle weakness, and dysarthria. He has remained frustrated by lack of improvement but is starting to see some progress. - LP performed shows elevated protein consistent with GBS. Elevated protein on LP consistent with GBS - MRI brain unremarkable. - MRI of cervical spine showed bulge of C6 without spinal impingement, otherwise unremarkable. - MRI of lumbar spine shows degeneration without significant spinal stenosis * IVIG 4mg/Kg treatment completed * Serum GQ1B antibody to test for Mo Barillas Syndrome is pending * PT/OT to work on gain and maintain function. CM working on possible discharge to [facility]. * Continue to monitor respiratory and swallowing (2) Back pain: Plan: Presented with back pain prior to admission, appears to have been exacerbated by the LP. No symptom improvement throughout stay. Very frustrated with continued pain. * Gabapentin 300 mg in morning and afternoon; Gabapentin 600 mg hs * Tylenol 1000mg Q8 scheduled * Mobic 15mg qam * Oxycodone 5mg resumed due to poor pain control * Heating pad * PT for movement while admitted (3) Constipation: Plan: Abdominal pain is improved with increase in bm. Still having mild discomfort at times. * Use Miralax daily (4) SLE (systemic lupus erythematosus): Plan: Chronic. On Plaquenil therapy. * Continue home Plaquenil (5) Headache: Plan: Improving, almost resolved. Mild to no pain at this time. Hx suggestive of tension menendez but could also be 2ry to GBS or IVIG. * Tylenol PRN Plan Code status: Full DVT prophylaxis: Lovenox Isolation: none Disposition: Anticipate discharge to [facility] Admission and Anticipated Discharge Date Admission Date: June 01, 2024 Supervising Physician Co-Signing Physician Notes I also saw the patient with the resident physician and medical student. I agree with the impression and plan as outlined in their documentation above. GBS with signs of improvement. Plan is for [facility] for continued rehabilitation pending bed availability. Continue gabapentin to 300 300 600. Continue meloxicam to 15 mg daily. Continue inpatient physical and occupational therapy. Subjective Patient evaluated at bedside and found to be AAOx3 and in NAD. Refers persistent lower back pain and expressed frustration with weakness, lower facial numbness, and said lower back pain. Nursing states he has been able to have bm. No chest pain, SOB, N/V/D, or any other sxs. Review of Systems Review of Systems: reviewed, per HPI Physical Exam Physical Exam: Constitutional: well-appearing, no acute distress HEENT: NCAT, no conjunctival injection CV: clinically well perfused Resp: no increased WOB GI: non distended MSK: no gross deformities appreciated Skin: warm, dry, no rash appreciated Neuro: b/l UE and LE weakness, persistent dysarthria but speech is less interrupted and slightly improved compared to previous evaluations Results & Data Results & Data Vital Signs (Past 12 Hours) Vital Signs Temp Pulse Pulse Resp BP Pulse Ox O2 Del Method 06/07/24 08:34 36.3 C L 90 20 152/98 H 96 Room Air 06/07/24 07:58 95 H 06/07/24 03:33 36.4 C L 94 H 14 120/87 95 Room Air Resident Activity Tracking Resident Involvement: Resident Care Provided Care Provided: Adult Hospital Medicine (2) Back pain Back pain laterality: bilateral Back pain location: low back pain Chronicity: unspecified Sciatica presence: unspecified whether sciatica present Qualified Code(s): M54.50 - Low back pain, unspecified
--- NOTE | 2024-06-08 10:03 | Hospitalist Progress Note ---
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 Neuro exam revealed areflexia, muscle weakness, and dysarthria. He has remained frustrated by lack of improvement but is starting to see some progress. - LP performed shows elevated protein consistent with GBS. Elevated protein on LP consistent with GBS - MRI brain unremarkable. - MRI of cervical spine showed bulge of C6 without spinal impingement, otherwise unremarkable. - MRI of lumbar spine shows degeneration without significant spinal stenosis * IVIG treatment completed (x5 days) * Serum GQ1B antibody to test for Mo Barillas Syndrome is pending * PT/OT to work on gain and maintain function. [facility] with availability for patient, but not until this coming week. * Continue to monitor respiratory and swallowing (2) Back pain: Plan: Presented with back pain prior to admission, appears to have been exacerbated by the LP. No symptom improvement throughout stay. Very frustrated with continued pain. Likely related to GBS. * Gabapentin 300 mg in morning, change afternoon dose to 600mg; Gabapentin 600 mg hs * Tylenol 1000mg Q8 scheduled * Mobic 15mg qam * Oxycodone 5mg q6h prn * Heating pad * PT for movement while admitted (3) Constipation: Plan: Abdominal pain is improved with increase in bm. Still having mild discomfort at times. * Use Miralax daily (4) SLE (systemic lupus erythematosus): Plan: Chronic. On Plaquenil therapy. * Continue home Plaquenil (5) Headache: Plan: Improving, almost resolved. Mild to no pain at this time. Hx suggestive of tension menendez but could also be 2ry to GBS or IVIG. * Tylenol PRN Plan Code status: Full DVT prophylaxis: Lovenox Isolation: none Disposition: Anticipate discharge to [facility] Admission and Anticipated Discharge Date Admission Date: June 01, 2024 Supervising Physician Co-Signing Physician Notes I also saw the patient with the resident physician and medical student. I agree with the impression and plan as outlined in their documentation above. GBS with signs of improvement, although still with neuropathic type pains in extremeties Speech improves each day Plan is for [facility] for continued rehabilitation pending bed availability. Increase gabapentin to 300 600 600, then 600 - 600 - 600 Continue meloxicam to 15 mg daily. Continue inpatient physical and occupational therapy. Subjective Patient with persistent lower back pain. Had better pain control yesterday after resuming Oxycodone, but reports more discomfort/pain overnight. No other new symptoms. Review of Systems Review of Systems: reviewed, per HPI Physical Exam Physical Exam: Constitutional: well-appearing, no acute distress HEENT: NCAT, no conjunctival injection CV: clinically well perfused Resp: no increased WOB GI: non distended MSK: no gross deformities appreciated Skin: warm, dry, no rash appreciated Neuro: b/l UE and LE weakness, improved dysarthria Results & Data Results & Data Vital Signs (Past 12 Hours) Vital Signs Temp Pulse Pulse Resp BP BP Pulse Ox 06/08/24 07:56 36.5 C 77 20 138/94 95 06/08/24 07:23 81 06/08/24 02:39 36.5 C 88 18 133/87 95 06/07/24 22:20 36.6 C 91 H 14 116/77 95 O2 Del Method 06/08/24 07:56 Room Air 06/08/24 07:23 06/08/24 02:39 Room Air 06/07/24 22:20 Room Air Resident Activity Tracking Resident Involvement: Resident Care Provided Care Provided: Adult Hospital Medicine (2) Back pain Back pain laterality: bilateral Back pain location: low back pain Chronicity: unspecified Sciatica presence: unspecified whether sciatica present Qualified Code(s): M54.50 - Low back pain, unspecified
[2024-06-08] MEDS: GABAPENTIN 600 MG TAB PO SCH (15:17)
[2024-06-09 07:56] LABS: Hematocrit (blood only) 40.4 % (42.0-52.0); Mean Corpuscular Hemoglobin 29.4 pg (25.0-34.0); Mean Corpuscular Hgb Conc 34.7 g/dL (32.0-36.0); Mean Corpuscular Volume 84.9 fL (80.0-100.0); Mean Platelet Volume 10.1 fL (9.4-12.4); Platelet Count 214 K/uL (130-400); RDW Coefficient of Variation 12.4 % (11.5-14.5); RDW Standard Deviation 38.4 fL (36.4-46.3); Red Blood Count 4.76 M/uL (4.70-6.10); White Blood Count 4.57 K/ul (4.8-10.8)
[2024-06-09 08:07] LABS: Albumin Globulin Ratio 0.8 (0.9-2); Albumin Level 3.5 gm/dl (3.4-5.0); Bilirubin,Total 0.2 mg/dl (0.2-1.0); Calcium 9.5 mg/dl (8.6-10.3); Globulin 4.3 gm/dl (2.5-4.0); Potassium 4.2 mmol/L (3.5-5.1); Total Protein 7.8 gm/dl (6.0-8.3)
--- NOTE | 2024-06-09 08:39 | Neurology Progress Note ---
Date of Service June 09, 2024 Assessment & Plan (1) GBS (Guillain [place]her[place] syndrome): (2) Back pain: (3) Dysesthesia of multiple sites: (4) Head pain: Plan Patient was admitted May 30, with a subacute course of weakness, numbness and tingling, low back pain, and headache. He presented with distal weakness in all 4 limbs, with some bifacial weakness. Currently he has weakness in all 4 limbs, of a mild nature. Some muscles (such as the biceps and gastrocnemius) are quite strong. He has clumsiness and decreased facility in his hands bilaterally. Despite his numbness, tingling, and pain, he has no obvious sensory deficits on neurologic examination. He is areflexic in all 4 limbs and has neutral toes to plantar stimulation. There are no upper motor neuron signs. 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 IVIG is notorious for giving headaches as a side effect. Extensive MRI imaging of the brain, cervical spine, and lumbar spine showed no other significant issues. Low back pain is typical for this diagnosis and may have been exacerbated by the lumbar puncture. Also, being handcuffed to the bed he, he is not able to position himself as frequently as he would like (which likely leads to back and joint pain). Patient's headaches were resolved but are back again today. He says he is not sleeping well. He finished a 5-day course of IVIG last week. Recommendations: 1. Continue gabapentin as ordered. 2. Initiate doxepin 25 mg each evening for sleep and (hopefully) pain control. 3. Serum GQ1b antibody is pending, however he clinically does not seem like the Mo Barillas variant of GBS 4. EMG and nerve conduction studies can be obtained as an outpatient (3 to 4 weeks from onset of symptoms). 5. Continue physical and Occupational Therapy for strengthening and gait training. He would be an excellent rehabilitation hospital candidate. 6. Follow-up as an outpatient with Dr. Hansen is reasonable as well. 7. Continue meloxicam to 15 mg once in the morning Overall, I spent a total of 55 minutes with this case including review of records, direct evaluation patient at bedside, report generation, and discussion of the case with the patient ad RN at bedside, and Dr. Alva, including differential diagnosis and treatment options. Admission and Anticipated Discharge Date Admission Date: June 01, 2024 Subjective Patient has a complaint this morning of mild headache around his eyes left greater than right side. In addition he has significant low back pain which rad iates in all directions particularly down the left leg. He has pain and dysesthesias in all 4 limbs in the face bilaterally. Blood pressure is 146/95 and he is afebrile. CBC is unremarkable and CHEM profile was unremarkable as well. Results & Data Vital Signs (Past 12 Hours) Vital Signs Temp Pulse Pulse Resp BP BP Pulse Ox 06/09/24 07:23 80 06/09/24 07:21 36.4 C L 81 17 146/95 H 95 06/09/24 03:34 36.5 C 86 14 141/90 H 94 06/08/24 22:36 36.8 C 103 H 14 120/76 94 06/08/24 21:42 106 H O2 Del Method 06/09/24 07:23 06/09/24 07:21 Room Air 06/09/24 03:34 Room Air 06/08/24 22:36 Room Air 06/08/24 21:42 Exam (Neuro) Physical Exam: He is awake and alert. Speech is without aphasia or dysarthria. Mood is reasonable although he is very anxious and tends to make it clear that he is in pain whenever we ask him to do anything. He also will say "I cannot do it" but then we will go about doing the tasks reasonably well. Extraocular eye muscles are intact without nystagmus but lateral movement gives him eye pain. He has no ptosis. There is normal sensation of the face bilaterally and facial nerve strength seems normal bilaterally and symmetrically. He can hold air in his cheeks. Tongue is midline and moves well [id number]. The patient has considerable shaking in his hands, when trying to do [id number] testing. This is true whether he is in close or trying to stretch out. I think he has trouble maintaining space because of proximal weakness. I am not convinced that this is true cerebellar ataxia. He has no abnormal involuntary movements when lying in bed otherwise. There is no resting or action tremor. Strength is somewhat variable but seems 4/5 with the deltoids and triceps and closer to 5/5 with the biceps. Hand muscles are are 4/5 diffusely and clumsy bilaterally. Leg strength seems 4/5 proximally and closer to 5/5 distally with gastrocnemius strength. Tibialis anterior strength and toe extensors are 4/5. Reflexes are absent all 4 limbs and toes are neutral to plantar stimulation bilaterally. PG Care Time/CCT Total # of Minutes Spent Total Time Spent with Patient: Total time spent is greater than 50% in coordination of care (as documented) at patient's floor/unit and/or counseling patient: Coding Level of Care Code 62322 SUB INP/OBS CARE 3/50MIN Diagnoses GBS (Guillain Meherrin syndrome) G61.0 Back pain M54.50 Back pain laterality: bilateral Back pain location: low back pain Chronicity: unspecified Sciatica presence: unspecified whether sciatica present Dysesthesia of multiple sites R20.8 Head pain R51.9 Headache chronicity pattern: acute headache Headache type: unspecified Intractability: not intractable Time Spent (min) 55 (2) Back pain Back pain laterality: bilateral Back pain location: low back pain Chronicity: unspecified Sciatica presence: unspecified whether sciatica present Qualified Code(s): M54.50 - Low back pain, unspecified (4) Head pain Headache chronicity pattern: acute headache Headache type: unspecified Intractability: not intractable Qualified Code(s): R51.9 - Headache, unspecified
--- NOTE | 2024-06-09 10:18 | Hospitalist Progress Note ---
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 Neuro exam revealed areflexia, muscle weakness, and dysarthria. He has remained frustrated by lack of improvement but is starting to see some progress. - LP performed shows elevated protein consistent with GBS. Elevated protein on LP consistent with GBS - MRI brain unremarkable. - MRI of cervical spine showed bulge of C6 without spinal impingement, otherwise unremarkable. - MRI of lumbar spine shows degeneration without significant spinal stenosis * IVIG treatment completed (x5 days) * Serum GQ1B antibody to test for Mo Barillas Syndrome is pending * PT/OT to work on gain and maintain function. [facility] with availability for patient at some point this week. * Continue to monitor respiratory and swallowing (2) Back pain: Plan: Presented with back pain prior to admission, appears to have been exacerbated by the LP. No symptom improvement throughout stay. Very frustrated with continued pain. Likely related to GBS. * Gabapentin 600 mg TID * Doxepin 25 mg hs added today * Tylenol 1000mg Q8 scheduled * Mobic 15mg qam * Oxycodone 5mg q6h prn * Heating pad * PT for movement while admitted (3) Constipation: Plan: Abdominal pain is improved with increase in bm. Still having mild discomfort at times. * Use Miralax daily (4) SLE (systemic lupus erythematosus): Plan: Chronic. On Plaquenil therapy. * Continue home Plaquenil (5) Headache: Plan: Improving, almost resolved. Mild to no pain at this time. Hx suggestive of tension menendez but could also be 2ry to GBS or IVIG. * Tylenol PRN Plan Code status: Full DVT prophylaxis: Lovenox Isolation: none Disposition: Anticipate discharge to [facility] Admission and Anticipated Discharge Date Admission Date: June 01, 2024 Supervising Physician Co-Signing Physician Notes I personally examined the patient and verified all coles points of history and exam, discussed case, and agree with decision making with Dr Leblanc Patient resting comfortably whenever I went to see him. Case discussed with neurology, input greatly appreciated. Vitals noted, in general he is resting comfortably no distress. Breathing unlabored. Guillain-Barrstatus post IVIG, continue to titrate gabapentin and oxycodone for pain control. Anticipate rehab as soon as possiblegiven that this will be the next phase of his recovery. Can continue to titrate pain control at rehab if needed. DVT prophylaxisLovenox otherwise as above Subjective Patient with persistent lower back pain as well as pain/numbness in LE and UE. Had bm yesterday. No fevers or chills, chst pain, SOB, or any other new sxs. Review of Systems Review of Systems: reviewed, per HPI Physical Exam Physical Exam: Constitutional: well-appearing, no acute distress HEENT: NCAT, no conjunctival injection CV: clinically well perfused Resp: no increased WOB GI: non distended Skin: warm, dry, no rash appreciated Neuro: b/l UE and LE weakness, improved dysarthria Results & Data Results & Data Vital Signs (Past 12 Hours) Vital Signs Temp Pulse Pulse Resp BP BP Pulse Ox 06/09/24 07:23 80 06/09/24 07:21 36.4 C L 81 17 146/95 H 95 06/09/24 03:34 36.5 C 86 14 141/90 H 94 06/08/24 22:36 36.8 C 103 H 14 120/76 94 O2 Del Method 06/09/24 07:23 06/09/24 07:21 Room Air 06/09/24 03:34 Room Air 06/08/24 22:36 Room Air Resident Activity Tracking Resident Involvement: Resident Care Provided Care Provided: Adult Hospital Medicine (2) Back pain Back pain laterality: bilateral Back pain location: low back pain Chronicity: unspecified Sciatica presence: unspecified whether sciatica present Qualified Code(s): M54.50 - Low back pain, unspecified
--- NOTE | 2024-06-09 19:21 | Billing Data ---
Date of Service June 09, 2024 Coding Level of Care Code 89678 SUB INP/OBS CARE
[2024-06-09] MEDS: DOXEPIN HCL 25 MG CAPSULE PO SCH (21:28)
--- NOTE | 2024-06-10 10:34 | Discharge Summary ---
Date of Service June 10, 2024 Admission HPI Per Admitting Provider Jose is a 53 yo male with a pmhx of SLE, asthma, and psoriasis who presents to [facility] for the third time in the past week due to complaints of numbness/tingling in his hands and feet that has been progressively worsening since his initial presentation on 05/23. He reports diminished sensation and generalized weakness and reportedly he fell at the shelter. He denies difficulty breathing or trouble swallowing. He denies any recent viral illnesses or vaccinations. He denies loss of bowel or bladder dysfunction. He is having some back pain. During his past 3 visits, he has undergone extensive scanning including CTH, CTA head/neck, and today an MRI of the lumbar spine was completed. He does have some disc disease noted on MRI but no other grossly abnormal findings to explain his symptoms. His CTA neck from 05/26 noted severe spinal stenosis at C6-7. His labs are otherwise stable and his only current concern is whether he can eat. He has been referred to the hospital medicine team for admission. Admission Exam Per Admitting Provider GENERAL: 53 yo Well-developed, well-nourished male. NAD. EYES: EOMI. PERRLA. Anicteric. HENT: Moist mucous membranes. No scleral icterus. No cervical lymphadenopathy. LUNGS: Clear to auscultation bilaterally. No W/R/R. CARDIOVASCULAR: Regular rate and rhythm. ABDOMEN: Soft, non-tender and non-distended. BS normoactive x 4 quad. EXTREMITIES: No edema. Non-tender. Peripheral pulses +2/4. NEUROLOGIC: A&O x3. Diminished sensation on all 4 extremities. Questionable dysarthria. No facial droop or tongue deviation. Globally diminished strength in all 4 extremities. No other gross neurologic deficits. PSYCHIATRIC: Cooperative. Appropriate mood and affect. SKIN: Warm, dry, intact. No rashes or lesions. Principal Diagnosis Guillain Falkland Syndrome Discharge Exam Constitutional: well-appearing, no acute distress HEENT: NCAT, no conjunctival injection CV: clinically well perfused Resp: no increased WOB GI: non distended Skin: warm, dry, no rash appreciated Neuro: b/l UE and LE weakness Discharge Data Allergies Allergy/AdvReac Type Severity Reaction Status Date / Time Penicillins AdvReac Severe Difficulty Verified 05/23/24 12:58 Breathing Consultations 05/30/24 15:16 ED Decision to Admit Stat 05/30/24 17:30 Consult Neurology Routine Ordered Studies 05/30/24 11:09 MRI Brain [MR brain wo/w con] Stat 05/30/24 12:45 MRI Lumbar Spine [MR lumbar spine wo con] Stat 05/31/24 00:00 MR cervical spine wo/w con Stat Hospital Course (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 Neuro exam revealed areflexia, muscle weakness, and dysarthria at time of admission. - LP performed shows elevated protein consistent with GBS. Elevated protein on LP consistent with GBS - MRI brain unremarkable. - MRI of cervical spine showed bulge of C6 without spinal impingement, otherwise unremarkable. - MRI of lumbar spine shows degeneration without significant spinal stenosis * IVIG treatment completed (x5 days) * Serum GQ1B antibody to test for Mo Barillas Syndrome is pending - Dysarthria improved and weakness has persisted but this am nursing states he was able to feed himself finger foods. - Will discharge to [facility] today for PT (2) Back pain: Presented with back pain prior to admission, appears to have been exacerbated by the LP. Likely related to GBS plus limited mobility. Have been titrating analgesics throughout hospital stay. Titration may continue once he reaches [facility]. * Gabapentin 600 mg TID * Doxepin 25 mg hs * Tylenol 1000mg Q8 scheduled * Mobic 15mg qam * Oxycodone 5mg q6h prn * Heating pad (3) Constipation: Abdominal pain is improved with increase in bm. Still having mild discomfort at times. * Use Miralax daily after discharge but may titrate as well to achieve good bm (4) SLE (systemic lupus erythematosus): Chronic. On Plaquenil therapy. * Continue home Plaquenil (5) Headache: Improving, almost resolved. Mild to no pain at this time. * Tylenol PRN Plan Will discharge to [facility] today for PT. Total Time Total Time Spent Total Time Spent (In Minutes): <30 Discharge Plan Discharge Items Patient Disposition: Transfer Inpatient Rehab Fac Reason For Visit: PARESTHESIAS WEAKNESS Discharge Diagnosis: Guillain Falkland Syndrome Activity: Per Instructions section Non-emergency contact: Primary Care Provider and Neurologist Call non-emergency contact if: your symptoms worsen and your temperature is above 101 Follow-up/Referrals: Grant ACKERMAN [Primary Care Provider] - Diet: Regular and Finger Foods Addtl Attending Provider Instructions: You were admitted due to worsening weakness that was found to be related to a condition called Guillain Falkland Syndrome (GBS), which is a condition where your immune system attacks your nerves leading to numbness and weakness. We spoke with our neurologists who treated you with IVIG for 5 days which is a treatment meant to decrease the attack from your immune system over your nerves. After this, we focused on physical therapy to help you move. As we discussed, it may take a few weeks-months for your muscle strength to return to or get as close as possible to what it used to be, therefore in the meantime trying to maintain a good amount of movement with physical exercise will be helpful. Also, as part of your condition, while the nerves are healing you may feel bothersome pain in your arms and legs, as well as pain in your trunk and lower back. The sensation may be similar to ants running over your skin or similar to when your legs "fall asleep". To try and control this pain, we were giving you Gabapentin 600 mg three times a day, Tylenol 1000 mg every 8 hours, Meloxicam 15 mg every morning, Doxepin 25 mg before bed, and Oxycodone 5 mg every 6 hours when the pain wasn't well controlled with this regimen. However, we had been making changes almost daily in an effort to find a good pain control regimen since you had not achieved good pain relief. This titration in doses may continue once you get to [facility]. We will be discharging you to [facility] for physical therapy. CONTACT YOUR PRIMARY CARE PROVIDER if you experience any of the following: Worsening of symptoms Fever, chills, or fatigue Difficulty following your treatment plan, or difficulty taking medications CALL 911 OR GO TO THE EMERGENCY DEPARTMENT if you experience any of the following: Sudden, severe abdominal pain or nausea/vomiting Severe chest pain, or chest pain that radiates (moves) to your jaw or arm Sudden, severe shortness of breath or difficulty breathing Thank you for allowing us to participate in your care. Pending Studies at Discharge: No Stand-Alone Forms: My [facility] Skilled Items Patient informed of condition?: Yes DNR: No Discharge Level of Care: Acute rehab Communicable Disease: No Discharge Prognosis: Stable Lines: None Urinary Catheter: No Medications and DC Order Prescriptions: New polyethylene glycol 3350 [Miralax] 17 gram Powder In Packet 17 g PO DAILY Qty: 30 0RF doxepin 25 mg Capsule 25 mg PO HS Qty: 30 0RF acetaminophen [Tylenol Extra Strength] 500 mg Tablet 1,000 mg PO Q8H Qty: 30 0RF meloxicam 7.5 mg Tablet 15 mg PO QAM Qty: 30 0RF gabapentin 300 mg Capsule 600 mg PO TID Qty: 90 0RF Continued Artificial Tears 1 drp ophthalmic (eye) TID hydroxychloroquine 200 mg Tablet 400 mg PO DAILY albuterol sulfate 90 mcg/actuation Hfa Aerosol Inhaler 2 puff INHALATION QID PRN (Reason: Shortness Of Breath) hydrocortisone 2.5 % Ointment 1 applic TOPICAL DAILY PRN (Reason: Other) Alvesco 80 mcg/actuation Hfa Aerosol Inhaler 1 puff INHALATION BID gabapentin 100 mg capsule 100 mg PO UD Rx Instructions: 100 mg po daily unable to verify, not on list scanned to chart. Discharge Orders: Discharge Order (Routine); Ordered 06/10/24 Ordered By: Lisa Leblanc Admission Data Admit Date/Time: 06/01/24 15:38 Attending Provider: Sherman Alva Admit Provider: Jordan Hong Primary Care Provider: Grant ACKERMAN Other Providers: Jordan Hong; Sathya Hansen; [facility] Other Interventions: Discharge Summary Assessment (RN) Last Done: 06/10/24 12:32 Supervising Physician Co-Signing Physician Notes I personally examined the patient and verified all coles points of history and exam, discussed case, and agree with decision making with Dr Leblanc able to feed self w gross motor (able to hold bread but not spoon). vitals noted nad fatigued heent nc at mmm breathing unlabored no accesssory muscles good effort skin without rashes/pallor/icterus Guillain-Barrstatus post IVIG, continue to titrate gabapentin and oxycodone for pain control. Anticipate rehab todaygiven that this will be the next phase of his recovery. Can continue to titrate pain control at rehab if needed. DVT prophylaxisLovenox otherwise as above Resident Activity Tracking Resident Involvement: Resident Care Provided Care Provided: Adult Hospital Medicine
[2024-06-10 11:20] VITALS: RESP 18; TEMP 98.1; O2SAT 95
[2024-06-10 12:44] VITALS: BP 146/95; PULSE 110
--- NOTE | 2024-06-10 13:34 | Billing Data ---
Date of Service June 10, 2024 Coding Level of Care Code 03269 IN/OBS DISCH 30 MIN/LESS
== END 2024-06-10 16:49 | DRG 95 ==
LOC: ED 10:29 → 3N 10:29 → SUATTDRO 16:17 → 3N 17:30 → 4W 21:54 → SUATTDRO 06-01 15:38